=== PATIENT | female | born 1945 | race Caucasian/White ===

== ENCOUNTER 2017-05-06 15:31 | Emergency (ER) | payer MEDICARE, OTHER ==
[~2017-05-06] VITALS: Ht 160 cm; Wt 54.4 kg
[~2017-05-06 15:31] MED LIST: ESCITALOPRAM OX10 MG PO; FLAGYL500 MG PO; LEVAQUIN500 MG PO; LEVOTHYROXINE75 MCG PO; NAPROXEN500 MG PO; ULTRAM50 MG PO; VALIUM2 MG PO
[2017-05-06] MEDS ORDERED: FLUOROMETHOLONE5 ML TOP (15:50)
== END 2017-05-06 17:15 | disposition home or self-care (01) ==
LOC: ED 15:31
PROC: 2W3MX1Z Immobilization of Left Lower Extremity using Splint (ICD-10-PCS; principal; 2017-05-06)
DX: S66.912A Strain of unspecified muscle, fascia and tendon at wrist and hand level, left hand, initial encounter (principal); M19.032 Primary osteoarthritis, left wrist; Z90.49 Acquired absence of other specified parts of digestive tract; Z90.710 Acquired absence of both cervix and uterus; Z88.5 Allergy status to narcotic agent; Z88.8 Allergy status to other drugs, medicaments and biological substances; Z79.899 Other long term (current) drug therapy; W01.0XXA Fall on same level from slipping, tripping and stumbling without subsequent striking against object, initial encounter
CPT/HCPCS: 29125; 73110; 73130; 99283

== ENCOUNTER 2018-01-12 01:38 | Emergency (ER) | payer MEDICARE, OTHER ==
[~2018-01-12] VITALS: Ht 160 cm; Wt 54.4 kg
--- OUTSIDE RECORDS SUMMARY | ~2018-01-12 | XMS | Clinical Summary ---
Demographics + + + | Address | [address] | | | [place] [address] | + + + | Home Phone | | + + + | Preferred Language | Unknown | + + + | Marital Status | | + + + | Gnosticism Affiliation | 1013 | + + + | Race | Unknown | + + + | Ethnic Group | Unknown | + + + Author + + + | Author | [facility] | | | and [place] | + + + | Organization | [facility] | | | and [...] [place], [place] | | | | | [address] | | + + + + + | Kiara Villagran | ECON | [address] | | | | | [place], [place] | | | | | [address] | | + + + + + Care Team Providers + +------+ + | Care Trumpet Player Name | Role | Phone | + +------+ + | Woody Christiansen DO | PP | Unavailable | + +------+ + Allergies + + [...] + + + Current Medications + + + +---------+------+------+-------+ | Prescription | Sig. | Disp. | Refills | Star | End | Statu | | | | | | t | Date | s | | | | | | Date | | | + + + +---------+------+------+-------+ | Multiple | 1 per day | | | 11/ | | Activ | | Minerals-Vitamins | | | | 5/20 | | e | | (CITRACAL PLUS) TABS | | | | 11 | | | + + + +---------+------+------+-------+ | ibuprofen (ADVIL, | Take 400 mg by mouth | | | 05/ | | Activ | | MOTRIN) 400 mg | as needed. | | | 02/10 | | e | | tablet | | | | 12 | | | + + + +---------+------+------+-------+ | estrogens, | Apply vaginally 3 | 42.5 g | 2 | 05/2 | | Activ | | conjugated, | times per week | | | 020 | | e | | (PREMARIN) vaginal | | | | 13 | | | | creamIndications: | | | | | | | | Atrophic vaginitis | | | | | | | + + + +---------+------+------+-------+ | ondansetron | Take 1 tablet by | 20 | 0 | 01/1 | | Activ | | (ZOFRAN ODT) 4 mg | mouth every 8 hours | tablet | | 6/20 | | e | | disintegrating | as needed. | | | 14 | | | | tabletIndications: | | | | | | | | Nausea | | | | | | | + + + +---------+------+------+-------+ | levothyroxine | Take 88 mcg by mouth | | | | | Activ | | (SYNTHROID, | every morning | | | | | e | | LEVOTHROID) 88 mcg | (before breakfast). | | | | | | | tablet | | | | | | | + + + +---------+------+------+-------+ Active Problems + + + | Problem | Noted Date | + + + | Diverticulitis | [...] bleeding. Haustrations increased. Repeat in | | 7500-7981. Dexa: | | | |Dexa: | + [...] Hypothyroidism | 09/11/2005 | + + + Immunizations + + + + | Name [...] + +------+ + | Alcohol abuse | | | Thyroid | + + +------+ + | Depression | | | | + + +------+ + | Emphysema | | | | + + +------+ + | Lung cancer | | | | + + +------+ + | Tobacco Use | | | | + + +------+ + + +------+--------+ + | Relation | Name | Status | Comments | + +------+--------+ + | Daughter | | | | + +------+--------+ + | Daughter | | | | + +------+--------+ + | Father | | | | + +------+--------+ + | Maternal Grandfather | | | | + +------+--------+ + | Maternal Grandmother | | | | + +------+--------+ + | Mother | | | | + +------+--------+ + | Paternal Grandfather | | | | + +------+--------+ + | Paternal Grandmother | | | | + +------+--------+ + Social History + +-------+ +--------+------+ | [...] + + + | Blood Pressure | 96/54 | 12/02/20131318 PDT | + + + + | Pulse | 54 | 12/02/20131318 PDT | + + + + | Temperature | 37 C (98.6 F) | 10/09/2013909 PST | + + + + | Respiratory Rate | 16 | 12/02/20131318 PDT | + + + + | Oxygen Saturation | 98% | 10/09/2013909 PST | + + + + | Inhaled Oxygen | - | - | | Concentration | | | + + + + | Weight | 56.2 kg (124 lb) | 12/02/20131318 PDT | + + + + | Height | 160 cm (5' 3") | 12/02/20131318 PDT | + + + + | Body Mass Index | 21.97 | 12/02/20131318 PDT | + + + + Plan of Treatment + + + + + | Health [...] Influenza | | 05/30/2012 | | | (Season Ended) | 8 | | | + + + + + | COLON CANCER | | 06/19/2011 | | | SCREENING | 1 | | | | (COLONOSCOPY EVERY | | | | | 10 YEARS 50-75) | | | | + + + + + Results Not on filefrom Last 3 Months Insurance + +--------+ +--------+ +---------+ | Payer | Benefi | Subscriber | Type | Phone | Address | | | t Plan | ID | | | | | | / | | | | | | | Group | | | | | + +--------+ +--------+ +---------+ | MEDICARE | MEDICA | xxxxxxxxxx | Medica | [phone]- | | | | RE | | re | [id number] | | | | PART A | | | | | | | AND B | | | | | + +--------+ +--------+ +---------+ | HEALTHNET | HEALTH | xxxxxxxxx | Indemn | [phone] | | | | NET | | ity | [phone] | | | | MDCR | | [...] | Self | [birth year] | Home: | [facility] [address] | | | al/Fam | | 1946 | [phone] | [place] [address] | | | kayla | | | [phone] | | + +--------+ +--------+ + +
--- OUTSIDE RECORDS SUMMARY | ~2018-01-12 | XMS | Clinical Summary ---
Demographics + + + | Address | [address] | | | [place] [address] | + + + | Home Phone | | + + + | Preferred Language | Unknown | + + + | Marital Status | | + + + | Yarsanism Affiliation | 1013 | + + + | Race | Unknown | + + + | Ethnic Group | Unknown | + + + Author + + + | Author | [facility] | | | and [place] | + + + | Organization | [facility] | | | and [...] [place], [place] | | | | | [address] | | + + + + + | Kiara Villagran | ECON | [address] | | | | | [place], [place] | | | | | [address] | | + + + + + Care Team Providers + +------+ + | Care Advertising Copywriter Name | Role | Phone | + [...] bleeding. Haustrations increased. Repeat in | | 3509-3427. Dexa: | | | |Dexa: | + [...] | HEALTH | xxxxxxxxx | Indemn | [phone] | | | | NET | | ity | [phone] | | | | MDCR | | [...] | Self | [birth year] | Home: | [facility] [address] | | | al/Fam | | 1946 | [phone] | [place] [address] | | | kayla | | | [address] | | + +--------+ +--------+ + +
[~2018-01-12 01:38] MED LIST changes: +FLUOROMETHOLONE5 ML TOP
[2018-01-12] MEDS ORDERED: NORCO 5-325 TA1 EACH PO (03:07)
[2018-01-12] MEDS ORDERED: ONDANSETRON ODT8 MG PO (03:07)
--- NOTE | 2018-01-12 13:49 | EKG ---
[facility] [address] [place] [address] Signed Sinus rhythm Second Degree, Type 2 Heart Block Left axis deviation Septal infarct , age undetermined Lateral infarct , age undetermined Abnormal ECG When compared with ECG of 07-JUL-2016 12:55, Current undetermined rhythm precludes rhythm comparison, needs review Septal infarct is now present Lateral infarct is now present Nonspecific T wave abnormality no longer evident in Anterior leads Confirmed by CLINTON MALDONADO MD ([id number]) on 01/12/2018 1:49:31 PM Electronically Signed By: CLINTON MALDONADO MD 01/12/18 1349 PATIENT NAME: JAVIER PÉREZ Electrocardiogram DATE OF : 47 PHYSICIAN: CLINTON MALDONADO MD REPORT #: [id number] REPORT IS CONFIDENTIAL AND NOT TO BE RELEASED WITHOUT AUTHORIZATION
== END 2018-01-12 03:21 | disposition home or self-care (01) ==
LOC: ED 01:38
DX: R51 Headache (principal); R00.1 Bradycardia, unspecified; Z88.5 Allergy status to narcotic agent; Z88.8 Allergy status to other drugs, medicaments and biological substances; Z79.899 Other long term (current) drug therapy
CPT/HCPCS: 70450; 80053; 84484; 85025; 93005; 93010; 96374; 96375; 99284; J1885; J2405; J3010

== ENCOUNTER 2018-06-26 04:19 | Emergency (ER) | payer MEDICARE, OTHER ==
[~2018-06-26] VITALS: Ht 160 cm; Wt 54.4 kg
--- OUTSIDE RECORDS SUMMARY | ~2018-06-26 | XMS | Encounter Summary ---
Demographics + + + | Address | [address] | | | [place] [address] | + + + | Home Phone | | + + + | Preferred Language | Unknown | + + + | Marital Status | | + + + | Rastafarian Affiliation | 1013 | + + + | Race | Unknown | + + + | Ethnic Group | Unknown | + + + Author + + + | Author | [facility] | | | and [place] | + + + | Organization | [facility] | | | and [place] | + + + | Address | Unknown | + + + | Phone | Unavailable | + + + Support + + + + + | Name | Relationship | Address | Phone | + + + + + | Irwin Pastrana | CELESTINO | [address] | | | | | [place], [place] | | | | | [address] | | + + + + + | Kiara Villagran | ECON | [address] | | | | | [place], [place] | | | | | [address] | | + + + + + Care Team Providers + +------+ + | Care Cad Developer Name | Role | Phone | + +------+ + | Woody Christiansen DO | PCP | | + +------+ + Reason for Visit Diagnostic/Screening (Routine) +--------+--------+ + + + + | Status | Reason | Specialty | Diagnoses / | Referred By | Referred To | | | | | Procedures | Contact | Contact | +--------+--------+ + + + + | Closed | | Radiology | Diagnoses | Iliana, | Lori Nuclear | | | | | Bradycardia | MD Reji | Medicine | | | | | Abnormal | [address] | [address] | | | | | EKG | [address] | [place], | | | | | Procedures | [place], | [place] | | | | | [place] Nuclear | [place] [address] | [address] | | | | | Stress Test | Phone: | Phone: | | | | | (Vasodilator | [phone] | [phone] | | | | | ) [place] | Fax: | Fax: | | | | | Nuclear | [phone] | [phone] | | | | | Stress Test | | | | | | | (Exercise) | | | +--------+--------+ + + + + Encounter Details +--------+ + + + + | Date | Type | Department | Care Team | Description | +--------+ + + + + | 04/19/ | Hospital | [facility] | Reji Barrientos, | Bradycardia; | | 2018 | Encounter | MED CTR NUCLEAR | MD [address] | Abnormal EKG | | | | MEDICINE [address] | [address] [place], | | | | | [address] [place], | [place] [address] | | | | | [place] [address] | [phone] | | | | | [phone] | | | +--------+ + + + + Social History + +-------+ +--------+------+ | Tobacco Use | Types | Packs/Day | Years | Date | | | | | Used | | + +-------+ +--------+------+ | Never Smoker | | | | | + +-------+ +--------+------+ + +---+---+---+ | Smokeless Tobacco: | | | | | Never Used | | | | + +---+---+---+ + + +---------+ + | Alcohol Use | Drinks/We | oz/Week | Comments | | | ek | | | + + +---------+ + | No | | | | + + +---------+ + + + + | Sex Assigned at | Date Recorded | | | | + + + | Not on file | | + + + as of this encounter Medications at Time of Discharge + + +-------+---------+ + + | Medication | Sig. | Disp. | Refills | Start | End Date | | | | | | Date | | + + +-------+---------+ + + | cyanocobalamin | Take 500 mcg by | | | | | | (VITAMIN B-12) 500 | mouth Daily. | | | | | | mcg tablet | | | | | | + + +-------+---------+ + + | ibuprofen (ADVIL, | Take 400 mg by mouth | | | 02/06/20 | | | MOTRIN) 400 mg | as needed. | | | 12 | | | tablet | | | | | | + + +-------+---------+ + + | levothyroxine | Take 88 mcg by mouth | | | | | | (SYNTHROID, | every morning | | | | | | LEVOTHROID) 88 mcg | (before breakfast). | | | | | | tablet | | | | | | + + +-------+---------+ + + as of this encounter Plan of Treatment +--------+---------+ + + + | Date | Type | Specialty | Care Team | Description | +--------+---------+ + + + | 06/27/ | Office | Cardiology | Brendon, | | | 2017 | Visit | | [address] | | | | | | [place], | | | | | | [place] [address] | | | | | | [phone] | | | | | | | | +--------+---------+ + + + | 08/23/ | Office | Cardiology | Reji Barrientos, | | | 2017 | Visit | | [address] | | | | | | [place], | | | | | | [place] [address] | | | | | | [phone] | | | | | | | | +--------+---------+ + + + as of this encounter Procedures + +--------+ + + + | Procedure Name | Priori | Date/Time | Associated Diagnosis | Comments | | | ty | | | | + +--------+ + + + | NM NUCLEAR STRESS | Routin | 04/19/2018 | Bradycardia | Results for this | | TEST (PHARMACOLOGIC | e | 1047 PDT | Abnormal EKG | procedure are in the | | - VASODILATOR) | | | | results section. | + +--------+ + + + in this encounter Results NM Nuclear Stress Test (Vasodilator) (04/19/2018 1047) + + + | Impressions | Performed At | + + + | 1. Regadenoson EKG is negative. 2. Normal Regadenoson | [facility] | | Sestamibi myocardial perfusion study with a normal left ventricular | | | size and wall thickness. Preserved left ventricular systolic | | | function. LVEF by gated SPECT 71 b%. Signed by: Reji | | | MD Iliana [facility] 04/19/2018, 10:48 | | + + + + + ---+ | Narrative | Performed A t | + + ---+ | | [facility] | | NUCLEAR MEDICINE STRESS TEST REPORT Patient Name: Yudith Ponce | | | Denilson Study Date: 04/19/2018 Primary Care Provider: Woody | | | DO Kuldip : 1945 Age: 72 y.o. | | | Gender: female CLINICAL HISTORY/DIAGNOSIS: Chest pain | | | [facility] SESTAMIBI STRESS TESTIndication: chest pain Procedure: In | | | the supine position, .4 mg of Regadenoson was infused intravenously | | | over 10 seconds. Blood pressure and EKG were monitored every 1 | | | minute. 5 mL of normal saline was utilized to flush the IV | | | line. Twenty seconds later, 10.7 mCi sestamibi intravenous | | | injection. SPECT myocardial perfusion imaging was acquired with | | | wall motion analysis. Rest imaging was performed using 35.5 mCi | | | Sestamibi intravenous injection. Repeated SPECT myocardial | | | perfusion imaging was acquired with wall motion analysis. | | | Hemodynamics: Heart rate baseline 33 beats per minute, peak 40 | | | beats per minute. Blood pressure baseline 130/65 mmHg, peak 99/41 | | | mmHg. EKG baseline underlying profound sinus | | | bradycardia. Peak unchanged. Side Effects: None. | | | Arrhythmia: None. Reg[facility] Sestamibi Myocardial Perfusion | | | Imaging Result: The Regaden[facility] Sestamibi tomographic images, | | | reviewed without the attenuation compensation resolution, revealed a | | | normal myocardial perfusion pattern as seen in short axis, vertical | | | long axis, and horizontal long axis projections. The left ventricular | | | cavity is normal. The rest imaging is also normal. Gated | | | SPECT reveals a normal left ventricular wall thickness and | | | motion. Preserved left ventricular systolic function. LVEF by gated | | | SPECT is 71 %. | | |Heart rate baseline 33 beats per minute, peak 40 beats per minute. Blood | | |pressure baseline 130/65 mmHg, peak 99/41 mmHg. EKG baseline underlying | | |profound sinus bradycardia. Peak unchanged. | | | | | |Side Effects: None. | | | | | |Arrhythmia: None. | | | | | |Reg[facility] Sestamibi Myocardial Perfusion Imaging Result: | | | The Reg[facility] Sestamibi tomographic images, reviewed without the | | |attenuation compensation resolution, revealed a normal myocardial | | |perfusion pattern as seen in short axis, vertical long axis, and | | |horizontal long axis projections. The left ventricular cavity is normal. | | |The rest imaging is also normal. | | | | | | Gated SPECT reveals a normal left ventricular wall thickness and motion. | | |Preserved left ventricular systolic function. LVEF by gated SPECT is 71 %. | | | | | | | | + + ---+ + +---------+ + + | Performing | Address | City/State/Zipcode | Phone Number | | Organization | | | | + +---------+ + + | [facility] | | | | + +---------+ + + in this encounter Visit Diagnoses + + | Diagnosis | + + | Bradycardia | + + | Other specified cardiac dysrhythmias | + + | Abnormal EKG | + + | Nonspecific abnormal electrocardiogram (ECG) (EKG) | + + Administered Medications + +--------+ + +------+------+ | Medication Order | MAR | Action | Dose | Rate | Site | | | Action | Date | | | | + +--------+ + +------+------+ | technetium TC-99M sestamibi | Given | | 30 | | | | (CARDIOLITE) injection 30 | | 8 10:35 | millicur | | | | millicurie 30 millicurie, | | PDT | ies | | | | Intravenous, ONCE PRN, Other, | | | | | | | Starting 04/19/18 at 1035, For | | | | | | | 1 dose, Nuclear Medicine | | | | | | + +--------+ + +------+------+ +---+---+ | | | +---+---+ in this encounter"
--- OUTSIDE RECORDS SUMMARY | ~2018-06-26 | XMS | Encounter Summary ---
Demographics + + + | Address | [address] | | | [place] [address] | + + + | Home Phone | | + + + | Preferred Language | Unknown | + + + | Marital Status | | + + + | Evangelical Affiliation | 1013 | + + + | Race | Unknown | + + + | Ethnic Group | Unknown | + + + Author + + + | Author | [facility] | | | and [place] | + + + | Organization | [facility] | | | and [place] | [...] [place], [place] | | | | | [address] | | + + + + + | Kiara Villagran | ECON | [address] | | | | | [place], [place] | | | | | [address] | | + + + + + Care Team Providers + +------+ + | Care Engine Service Repairer Name | Role | Phone | + +------+ + | Woody Christiansen DO | PCP | | + +------+ + Reason for Visit +--------+ + | Reason | Comments | +--------+ + | Other | low heart rate | +--------+ + Encounter Details +--------+ + + + + | Date | Type | Department | Care Team | Description | +--------+ + + + + | 04/29/ | Telephone | [facility] | Reji Barrientos, | Other (low heart | | 2018 | | CARDIOLOGY [address] | [address] | rate) | | | | [place], | [place], | | | | | [place] [address] | [place] [address] | | | | | [phone] | [phone] | | | | | | | | +--------+ + + + [...] + + + as of this encounter Plan of Treatment +--------+---------+ + + + | Date | Type | Specialty | Care Team | Description | +--------+---------+ + + + | 06/27/ | Office | Cardiology | Brendon, | | | 2017 | Visit | | [address] | | | | | | [place], | | | | | | [place] [address] | | | | | | [phone] | | | | | | | | +--------+---------+ + + + | 08/23/ | Office | Cardiology | Reji Barrientos, | | | 2017 | Visit | | MD [address] | | | | | | [place], | | | | | | [place] [address] | | | | | | [phone] | | | | | | | | +--------+---------+ + + + as of this encounter Visit Diagnoses Not on filein this encounter"
--- OUTSIDE RECORDS SUMMARY | ~2018-06-26 | XMS | Encounter Summary ---
Demographics + + + | Address | [address] | | | [place] [address] | + + + | Home Phone | | + + + | Preferred Language | Unknown | + + + | Marital Status | | + + + | Methodist Affiliation | 1013 | + + + | Race | Unknown | + + + | Ethnic Group | Unknown | + + + Author + + + | Author | [facility] | | | and Fidelana | + + + | Organization | [facility] | | | and [...] [place], [place] | | | | | [address] | | + + + + + | Kiara Villagran | ECON | [address] | | | | | [place], [place] | | | | | [address] | | + + + + + Care Team Providers + +------+ + | Care Shellfish Weigher Name | Role | Phone | + [...] Abnormal | [address] | [address] | | | | | EKG | [address] | [place], | | | | | Procedures | [place], | [place] | | | | | [place] | [place] [address] | [address] | | | | | Stress Test | Phone: | Phone: | | | | | (Vasodilator | [phone] | [phone] | | | | | ) [place] | Fax: | Fax: | | | | | Nuclear | [phone] | [phone] | | | | | Stress Test | | | | | | | (Exercise) | | | +--------+--------+ + + + + Encounter Details +--------+ + + + + | Date | Type | Department | Care Team | Description | +--------+ + + + + | 04/19/ | Hospital | [facility] | Reji Barrientos, | Bradycardia; | | 2018 | Encounter | MED CTR NUCLEAR | MD [address] | Abnormal EKG; | | | | MEDICINE [address] [place], | Hyperlipidemia, | | | | [address] [place], | [place] [address] | unspecified | | | | [place] [address] | [phone] | hyperlipidemia type | | | | [phone] | | | | | | | Chief Of Pediatric UrologyLori | | +--------+ + + + + [...] | | | | | | [place] [address] | | | | | | [phone] | | | | | | | | +--------+---------+ + + + | 08/23/ | Office | Cardiology | Reji Barrientos, | | | 2017 | Visit | | [address] | | | | | | [place], | | | | | | [place] [address] | | | | | | [phone] | | | | | | | [...] section. | + +--------+ + + + | LIPID PANEL | Routin | 04/19/2018 | Bradycardia | Results for this | | | e | 0920 PDT | Abnormal EKG | procedure are in the | | | | | Hyperlipidemia, | results section. | | | | | unspecified | | | | | | hyperlipidemia type | | + +--------+ + + + | CBC WITH | Routin | 04/19/2018 | Bradycardia | Results for this | | DIFFERENTIAL | e | 0920 PDT | Abnormal EKG | procedure are in the | | | | | | results section. | + +--------+ + + + | TSH | Routin | 04/19/2018 | Bradycardia | Results for this | | | e | 0920 PDT | Abnormal EKG | procedure are in the | | | | | | results section. | + +--------+ + + + | COMPREHENSIVE | Routin | 04/19/2018 | Bradycardia | Results for this | | METABOLIC PANEL | e | 0920 PDT | Abnormal EKG | procedure are in the | | | | | | results section. | + +--------+ + + + in this encounter Results Lipid Panel (04/19/2018919) + + + + + | Component | Value | Ref Range | Performed At | + + + + + | Triglycerides | 102 | 35 - 160 mg/dL | [facility] | | | | | [facility] | | | | [facility] - | | | | | LABORATORY | + + + + + | Cholesterol | 172 | 150 - 200 mg/dL | [facility] | | | | | [facility] | | | | | [facility] - | | | | | LABORATORY | + + + + + | HDL | 52Comment: New HDL | 28 - 83 mg/dL | [facility] | | | Reference Range as of | | [facility] | | | June 03, 2015 | | CENTER - | | | Values may be 10-20% | | LABORATORY | | | lower with new, | | | | | standardized method. | | | + + + + + | Chol/HDL Ratio | 3.3 | | [facility] | | | | | [facility] | | | | | [facility] - | | | | | LABORATORY | + + + + + | LDL, Calculated | 100 | <=130 mg/dL | [facility] | | | | | [facility] | | | | | [facility] - | | | | | LABORATORY | + + + + + + + | Specimen | + + | Blood | + + + + + + + | Performing | Address | City/State/Zipcode | Phone Number | | Organization | | | | + + + + + | [facility] | [address] | [place], [place] | [phone] | | [facility] | | [address] | | | - LABORATORY | | | | + + + + + | [facility] | [address] | [place] | | | [facility] | | [address] | | | - LABORATORY | | | | + + + + + TSH (04/19/2018919) + + + + + | Component | Value | Ref Range | Performed At | + + + + + | TSH | 0.09 (L)Comment: This is | 0.45 - 5.33 uIU/mL | [facility] | | | a third generation TSH | | [facility] | | | test. | | CENTER - | | | | | LABORATORY | + + + + + + + | Specimen | + + | Blood | + + + + + + + | Performing | Address | City/State/Zipcode | Phone Number | | Organization | | | | + + + + + | [facility] | [address] | [place], [place] | [phone] | | [facility] | | [address] | | | - LABORATORY | | | | + + + + + | [facility] | [address] | [place], [place] | | | [facility] | | [address] | | | - LABORATORY | | | | + + + + + Comprehensive Metabolic Panel (04/19/2018919) + + + + + | Component | Value | Ref Range | Performed At | + + + + + | NA | 140 | 136 - 149 mmol/L | [facility] | | | | | [facility] | | | | | [facility] - | | | | | LABORATORY | + + + + + | K | 4.0 | 3.5 - 5.1 mmol/L | [facility] | | | | | [facility] | | | | | [facility] - | | | | | LABORATORY | + + + + + | CL | 109 | 98 - 109 mmol/L | [facility] | | | | | [facility] | | | | | [facility] - | | | | | LABORATORY | + + + + + | CO2 | 24 | 24 - 31 mmol/L | [facility] | | | | | [facility] | | | | | [facility] - | | | | | LABORATORY | + + + + + | ANION GAP | 7 | 3 - 16 mmol/L | [facility] | | | | | [facility] | | | | | [facility] - | | | | | LABORATORY | + + + + + | GLUCOSE | 106 | 70 - 109 mg/dL | [facility] | | | | | [facility] | | | | | [facility] - | | | | | LABORATORY | + + + + + | BUN | 17 | 7 - 18 mg/dL | [facility] | | | | | [facility] | | | | | C[facility] - | | | | | LABORATORY | + + + + + | Creatinine, | 0.88 | 0.60 - 1.30 mg/dL | [facility] | | Serum/Plasma | | | [facility] | | | | | CENTER - | | | | | LABORATORY | + + + + + | eGFR if not | >60Comment: GLOMERULAR | >=60 mL/min/1.73m2 | [facility] | | [place] | FILTRATION | | [facility] | | | RATE,ESTIMATED mL/min | | CENTER - | | | /1.61d8Jogo than 60 | | LABORATORY | | | Chronic kidney | | | | | disease,if found over a | | | | | 3-month period.Less than | | | | | 15 Kidney | | | | | failureFor | | | | | Americans,multiply the | | | | | calculated GFR by 1.21. | | | | | | | | + + + + + | CALCIUM | 9.5 | 8.3 - 10.5 mg/dL | [facility] | | | | | [facility] | | | | | CENTER - | | | | | LABORATORY | + + + + + | ALBUMIN | 3.9 | 3.2 - 5.0 g/dL | [facility] | | | | | [facility] | | | | | CENTER - | | | | | LABORATORY | + + + + + | Bilirubin Total | 2.3 (H) | 0.1 - 1.5 mg/dL | [facility] | | | | | [facility] | | | | | CENTER - | | | | | LABORATORY | + + + + + | Total protein | 6.7 | 6.0 - 7.8 g/dL | [facility] | | | | | [facility] | | | | | C[facility] - | | | | | LABORATORY | + + + + + | AST | 19 | 10 - 42 U/L | [facility] | | | | | [facility] | | | | | C[facility] - | | | | | LABORATORY | + + + + + | ALT | 19 | 6 - 45 U/L | [facility] | | | | | [facility] | | | | | [facility] - | | | | | LABORATORY | + + + + + | ALK PHOS | 67 | 40 - 110 U/L | [facility] | | | | | [facility] | | | | | [facility] - | | | | | LABORATORY | + + + + + | GLOBULIN | 2.8 | 2.1 - 3.8 g/dL | [facility] | | | | | [facility] | | | | | C[facility] - | | | | | LABORATORY | + + + + + | Albumin/Globulin | 1.4 | 0.8 - 2.0 | [facility] | | ratio | | | [facility] | | | | | CENTER - | | | | | LABORATORY | + + + + + | BUN/CREA | 19.3 | | [facility] | | | | | [facility] | | | | | [facility] - | | | | | LABORATORY | + + + + + + + | Specimen | + + | Blood | + + + + + + + | Performing | Address | City/State/Zipcode | Phone Number | | Organization | | | | + + + + + | [facility] | [address] | [place] | [phone] | | [facility] | | [address] | | | - LABORATORY | | | | + + + + + | [facility] | [address] | [place] | | | [facility] | | [address] | | | - LABORATORY | | | | + + + + + CBC with Differential (04/19/2018919) + +---------+ + + | Component | Value | Ref Range | Performed At | + +---------+ + + | WBC | 6.5 | 4.0 - 11.0 K/uL | [facility] | | | | | [facility] | | | | | CENTER - | | | | | LABORATORY | + +---------+ + + | RBC | 5.14 | 3.70 - 5.20 M/uL | [facility] | | | | | [facility] | | | | | [facility] - | | | | | LABORATORY | + +---------+ + + | Hgb | 15.7 | 11.5 - 16.0 g/dL | [facility] | | | | | [facility] | | | | | [facility] - | | | | | LABORATORY | + +---------+ + + | Hct | 45.7 | 34.0 - 47.0 % | [facility] | | | | | [facility] | | | | | [facility] - | | | | | LABORATORY | + +---------+ + + | MCV | 88.8 | 83.0 - 101.0 fL | [facility] | | | | | [facility] | | | | | [facility] - | | | | | LABORATORY | + +---------+ + + | MCH | 30.5 | 28.0 - 35.0 pg | [facility] | | | | | [facility] | | | | | [facility] - | | | | | LABORATORY | + +---------+ + + | MCHC | 34.4 | 32.0 - 36.0 g/dL | [facility] | | | | | [facility] | | | | | [facility] - | | | | | LABORATORY | + +---------+ + + | RDW-CV | 14.2 | <15.0 % | [facility] | | | | | [facility] | | | | | [facility] - | | | | | LABORATORY | + +---------+ + + | Platelet Count | 255 | 140 - 440 K/uL | [facility] | | | | | [facility] | | | | | [facility] - | | | | | LABORATORY | + +---------+ + + | MPV | 8.4 | fL | [facility] | | | | | [facility] | | | | | [facility] - | | | | | LABORATORY | + +---------+ + + | % Neutrophils | 55.2 | 45.0 - 82.0 % | [facility] | | | | | [facility] | | | | | [facility] - | | | | | LABORATORY | + +---------+ + + | % Lymphocytes | 36.1 | 20.0 - 45.0 % | [facility] | | | | | [facility] | | | | | [facility] - | | | | | LABORATORY | + +---------+ + + | % Monocytes | 6.6 | 4.0 - 12.0 % | [facility] | | | | | [facility] | | | | | [facility] - | | | | | LABORATORY | + +---------+ + + | % Eosinophils | 0.9 | 0.0 - 5.0 % | [facility] | | | | | [facility] | | | | | [facility] - | | | | | LABORATORY | + +---------+ + + | % Basophils | 1.2 (H) | 0.0 - 1.0 % | [facility] | | | | | [facility] | | | | | [facility] - | | | | | LABORATORY | + +---------+ + + | Absolute Neutrophils | 3.60 | 1.80 - 8.50 K/uL | [facility] | | | | | [facility] | | | | | [facility] - | | | | | LABORATORY | + +---------+ + + | Absolute Lymphocytes | 2.40 | 0.60 - 3.20 K/uL | [facility] | | | | | [facility] | | | | | [facility] - | | | | | LABORATORY | + +---------+ + + | Absolute Monocytes | 0.40 | 0.00 - 1.00 K/uL | [facility] | | | | [facility] | | | | | [facility] - | | | | | LABORATORY | + +---------+ + + | Absolute Eosinophils | 0.10 | 0.00 - 0.40 K/uL | [facility] | | | | | [facility] | | | | | [facility] - | | | | | LABORATORY | + +---------+ + + | Absolute Basophils | 0.10 | 0.00 - 0.10 K/uL | [facility] | | | | | [facility] | | | | | CENTER - | | | | | LABORATORY | + +---------+ + + + + | Specimen | + + | Blood | + + + + + + + | Performing | Address | City/State/Zipcode | Phone Number | | Organization | | | | + + + + + | [facility] | [address] | [place] | [phone] | | [facility] | | [address] | | | - LABORATORY | | | | + + + + + | [facility] | [address] | [place] | | | [facility] | | [address] | | | - LABORATORY | | | | + + + + + in this encounter Visit Diagnoses + + | Diagnosis | + + | Bradycardia | + + | Other specified cardiac dysrhythmias | + + | Abnormal EKG | + + | Nonspecific abnormal electrocardiogram (ECG) (EKG) | + + | Hyperlipidemia, unspecified hyperlipidemia type | + + Administered Medications + +--------+ + +------+------+ | Medication Order | MAR | Action | Dose | Rate | Site | | | Action | Date | | | | + +--------+ + +------+------+ | technetium TC-99M sestamibi | Given | | 10.3 | | | | (CARDIOLITE) injection 10.3 | | 8 7:44 | millicur | | | | millicurie 10.3 millicurie, | | PDT | ies | | | | Intravenous, ONCE PRN, Other, | | | | | | | Starting 04/19/18 at 0744, For | | | | | | | 1 dose, Nuclear Medicine | | | | | | + +--------+ + +------+------+ +---+---+ | | | +---+---+ in this encounter"
--- OUTSIDE RECORDS SUMMARY | ~2018-06-26 | XMS | Encounter Summary ---
Demographics + + + | Address | [address] | | | [place] [address] | + + + | Home Phone | | + + + | Preferred Language | Unknown | + + + | Marital Status | | + + + | Scientologist Affiliation | 1013 | + + + | Race | Unknown | + + + | Ethnic Group | Unknown | + + + Author + + + | Author | [facility] | | | and [place]idel[place] | + + + | Organization | [facility] | | | and [place] [...] [place], [place] | | | | | [address] | | + + + + + | Kiara Villagran | ECON | [address] | | | | | [place], [place] | | | | | [address] | | + + + + + Care Team Providers + +------+ + | Care Wheel Filler Name | Role | Phone | + +------+ + | Woody Christiansen DO | PCP | | + +------+ + Reason for Visit +--------+ + | Reason | Comments | +--------+ + | Other | more questions | +--------+ + Encounter Details +--------+ + + + + | Date | Type | Department | Care Team | Description | +--------+ + + + + | 05/20/ | Telephone | [facility] | Reji Barrientos, | Other (more | | 2017 | | [address] | questions) | | | | [address], | [place], | | | | | [place] [address] | [place] [address] | | | | | [phone] | [phone] | | | | | | | [...] | | | | | | [place] [address] | | | | | | [phone] | | | | | | | | +--------+---------+ + + + | 08/23/ | Office | Cardiology | Reji Barrientos, | | | 2017 | Visit | | MD [address] | | | | | | [place], | | | | | | [place] [address] | | | | | | [phone] | | | | | | | | +--------+---------+ + + + as of this encounter Visit Diagnoses Not on filein this encounter"
--- OUTSIDE RECORDS SUMMARY | ~2018-06-26 | XMS | Encounter Summary ---
Demographics + + + | Address | [address] | | | [place] [address] | + + + | Home Phone | | + + + | Preferred Language | Unknown | + + + | Marital Status | | + + + | Muslim Affiliation | 1013 | + + + | Race | Unknown | + + + | Ethnic Group | Unknown | + + + Author + + + | Author | [facility] | | | and [place] | + + + | Organization | [facility] | | | and [place] [...] [place], [place] | | | | | [address] | | + + + + + | Kiara Villagran | ECON | [address] | | | | | [place], [place] | | | | | [address] | | + + + + + Care Team Providers + +------+ + | Care Count Room Clerk Name | Role | Phone | + +------+ + | Woody Christiansen DO | PCP | | + +------+ + Encounter Details +--------+ + + + + | Date | Type | Department | Care Team | Description | +--------+ + + + + | 04/10/ | Hospital | [facility] | Amilcaralexsilvio Keziaamilcar, | Bradycardia; | | 2018 | Encounter | MED CTR NUCLEAR | MD [address] | Abnormal EKG | | | | MEDICINE [address] [place], | | | | | [place], | [place] [address] | | | | | [place] [address] | [phone] | | | | | [phone] | | | +--------+ + + + [...] | | | | | | [place], | | | | | | [place] [address] | | | | | | [phone] | | | | | | | | +--------+---------+ + + + | 08/23/ | Office | Cardiology | Amilcarkeizaespinoza Keziaamilcar, | | | 2017 | Visit | | [address] | | | | | | [place], | | | | | | [place] [address] | | | | | | [phone] | | | | | | | | +--------+---------+ + + + as of this encounter Procedures + +--------+ + + + | Procedure Name | Priori | Date/Time | Associated Diagnosis | Comments | | | ty | | | | + +--------+ + + + | HOLTER MONITOR - 48 | Routin | 04/12/2018 | Bradycardia | Results for this | | HOUR | e | 1528 PDT | Abnormal EKG | procedure are in the | | | | | | results section. | + +--------+ + + + in this encounter Results Holter monitor - 48 hour (04/12/2018 1528) + + + | Narrative | Performed At | + + + | Reji Barrientos MD 04/12/2018 15:37 PATIENT | [facility] | | NAME: Yudith Oreilly : 1945: AGE: 72 | | | y.o. PRIMARY CARE: Woody | | | DO KAREN Christiansen PROVIDER RELATIONS ADVOCATE: Reji Barrientos MD | | | 48-HOUR HOLTER MONITOR REPORT DATE: 04/10/2018 | | | IMPRESSION: 1. The predominant rhythm is sinus bradycardia with | | | the heart rate ranging between 32 and 81 beats per minute. The | | | average heart rate was 49 beats per minute during the 47:08 hour | | | recording. 2. Very rare premature ventricular contractions | | | including one couplet and one triplet. 3. Frequent to very | | | frequent premature atrial contractions including 233 couplets and | | | 358 SVE runs. The longest run was 8 beats (19:56-2) and the | | | maximum rate was 96 beats per minute (08:20-3). 4. 646 pauses, | | | the longest 3.51 seconds (03:15-2). An additional number (68) of | | | beats were categorized as non-conducting p-waves. 5. The patient | | | listed multiple symptoms of her heart pounding and | | | dizziness. These all correlated with bradycardia. Signed by: | | | Reji Barrientos MD [facility] 04/12/2018, 15:28 | | + + + + +---------+ + + | Performing | Address | City/State/Zipcode | Phone Number | | Organization | | | | + +---------+ + + | [facility] | | | | + +---------+ + + in this encounter Visit Diagnoses + + | Diagnosis | + + | Bradycardia | + + | Other specified cardiac dysrhythmias | + + | Abnormal EKG | + + | Nonspecific abnormal electrocardiogram (ECG) (EKG) | + +"
--- OUTSIDE RECORDS SUMMARY | ~2018-06-26 | XMS | Encounter Summary ---
Demographics + + + | Address | [address] | | | [place] [address] | + + + | Home Phone | | + + + | Preferred Language | Unknown | + + + | Marital Status | | + + + | Restorationist Affiliation | 1013 | + + + | Race | Unknown | + + + | Ethnic Group | Unknown | + + + Author + + + | Author | [facility] | | | and [place] | + + + | Organization | [facility] | | | and [place] [...] [place], [place] | | | | | [address] | | + + + + + | Kiara Villagran | ECON | [address] | | | | | [place], [place] | | | | | [address] | | + + + + + Care Team Providers + +------+ + | Care Plastic Shaper Name | Role | Phone | + [...] + + | 04/29/ | Telephone | [facility] | Reji Barrientos, | Other (low heart | | 2018 | | CARDIOLOGY [address] [place] | rate) | | | | [place], | [place], | | | | | [place] [address] | [place] [address] | | | | | [phone] | [phone] | | | | | | | [...] | | | | | | [place] [address] | | | | | | [phone] | | | | | | | | +--------+---------+ + + + | 08/23/ | Office | Cardiology | Reji Barrientos, | | | 2017 | Visit | | MD [address] | | | | | | [place], | | | | | | [place] [address] | | | | | | [phone] | | | | | | | | +--------+---------+ + + + as of this encounter Visit Diagnoses Not on filein this encounter"
--- OUTSIDE RECORDS SUMMARY | ~2018-06-26 | XMS | Encounter Summary ---
Demographics + + + | Address | [address] | | | [place] [address] | + + + | Home Phone | | + + + | Preferred Language | Unknown | + + + | Marital Status | | + + + | Muslim Affiliation | 1013 | + + + | Race | Unknown | + + + | Ethnic Group | Unknown | + + + Author + + + | Author | [facility] | | | and [place] | + + + | Organization | [facility] | | | and [place] | + + + | Address | Unknown | + + + | Phone | Unavailable | + + + Support + + + + + | Name | Relationship | Address | Phone | + + + + + | Irwin Pastrana | CELESTINO | [address] | | | | | [place], [place] | | | | | [address] | | + + + + + | Kiara Villagran | ECON | [address] | | | | | [place], [place] | | | | | [address] | | + + + + + Care Team Providers + +------+ + | Care Insurance Risk Surveyor Name | Role | Phone | + +------+ + | Woody Christiansen DO | PCP | | + +------+ + Reason for Visit + + + | Reason | Comments | + + + | Follow-up | | + + + | Bradycardia | | + + + Encounter Details +--------+---------+ + + + | Date | Type | Department | Care Team | Description | +--------+---------+ + + + | 05/20/ | Office | [facility] | Reji Barrientos, | Bradycardia (Primary | | 2018 | Visit | CARDIOLOGY [address] | MD [address] | Dx); Palpitations | | | | [place], | [place], | | | | | [place] [address] | [place] [address] | | | | | [phone] | [phone] | | | | | | | | +--------+---------+ + + + Social History + +-------+ [...] + + + as of this encounter Last Filed Vital Signs + + + + | Vital Sign | Reading | Time Taken | + + + + | Blood Pressure | 92/60 | 05/20/2018 1345 PDT | + + + + | Pulse | 52 | 05/20/2018 1345 PDT | + + + + | Temperature | - | - | + + + + | Respiratory Rate | 18 | 05/20/2018 1345 PDT | + + + + | Oxygen Saturation | - | - | + + + + | Inhaled Oxygen | - | - | | Concentration | | | + + + + | Weight | 55.8 kg (123 lb 0.3 | 05/20/2018 1345 PDT | | | oz) | | + + + + | Height | 160 cm (5' 3") | 05/20/2018 1345 PDT | + + + + | Body Mass Index | 21.79 | 05/20/2018 1345 PDT | + + + + in this encounter Progress Notes Reji Barrientos MD - 05/20/2018 1400 PDTFormatting of this note may be different from jared godwin. PATIENT NAME: Yudith Oreilly : 1945: AGE: 72 y.o. PRIMARY CARE: Woody Christiansen DO OUTPATIENT FOLLOW UP VISIT Date of Service: 05/20/2018 HISTORY OF PRESENT ILLNESS: Yudith Oreilly is a 72 y.o. female with a history of hypothyroidism. She is being seen today for bradycardia and palpitations. She was last seen 04/05/2018 at which time patient was scheduled for echocardiogram, 48 hour Holter monitor and exercise stress test. Since that time, patient reports one episode of di zziness. She also reports feeling fatigue and some palpitations. Patient is physically activ e walking. There is no chest pain or chest discomfort both at rest and on exertion. Patient denies breathlessness. There is no ankle or leg swelling. Patient can sleep on one pillow at night without difficulty breathing. MEDICAL, SURGICAL, AND PERSONAL HISTORY Past Medical, Surgical, Family, and Social History are reviewed in EPIC. CURRENT PROBLEMS Patient Active Problem List Diagnosis SARAI'S THYROIDITIS DIVERTICULOSIS OF COLON Hypothyroidism PALPITATIONS COLONIC POLYPS, HYPERPLASTIC, HX OF OSTEOPENIA HYPERLIPIDEMIA STRESS REACTION, ACUTE Atrophic vaginitis Dehydration Preventative health care Diverticulitis Bradycardia Forgetfulness Gait disturbance Alzheimer's dementia CURRENT MEDICATIONS Current Outpatient Prescriptions Medication Sig Dispense Refill cyanocobalamin (VITAMIN B-12) 500 mcg tablet Take 500 mcg by mouth Daily. ibuprofen (ADVIL, MOTRIN) 400 mg tablet Take 400 mg by mouth as needed. levothyroxine (SYNTHROID, LEVOTHROID) 88 mcg tablet Take 88 mcg by mouth every morning (before breakfast). No current facility-administered medications for this visit. ALLERGIES Allergies Allergen Reactions Levofloxacin Other (See Comments) Severe body aches Metronidazole Other (See Comments) Severe body aches Nitrofurantoin Macrocrystal Other (See Comments) Nausea, flushing, tingling of skin. Tramadol Nausea And Vomiting Atropine Codeine Sulfate Diphenoxylate Hcl Lomotil Meperidine Hcl Morphine Propoxyphene Hcl ROS Review of Systems Constitutional: Negative for malaise/fatigue. Respiratory: Positive for shortness of breath. Cardiovascular: Negative for chest pain, palpitations and leg swelling. Neurological: Positive for dizziness. Negative for weakness. Lightheaded = No OBJECTIVE: PHYSICAL EXAM BP 92/60 | Pulse 52 | Resp 18 | Ht 1.6 m (5' 3") | Wt 55.8 kg (123 lb 0.3 oz) | BMI 21 .79 kg/m Physical Exam Constitutional: She is oriented to person, place, and time. She appears well-developed and well-nourished. Female individual arrives with , no acute distress. Neck: Normal carotid pulses and no JVD present. Carotid bruit is not present. Cardiovascular: Normal rate, regular rhythm, S1 normal, S2 normal, normal heart sounds and intact distal pulses. PMI is not displaced. Exam reveals no gallop and no friction rub. No murmur heard. Pulses: Carotid pulses are 2+ on the right side, and 2+ on the left side. Posterior tibial pulses are 2+ on the right side, and 2+ on the left side. Pulmonary/Chest: Effort normal and breath sounds normal. No accessory muscle usage. No resp iratory distress. She has no wheezes. She has no rhonchi. She has no rales. Abdominal: Soft. Normal appearance and normal aorta. She exhibits no abdominal bruit. There is no hepatosplenomegaly. There is no tenderness. Musculoskeletal: She exhibits no edema. Neurological: She is alert and oriented to person, place, and time. Gait normal. Skin: Skin is warm and dry. No cyanosis. Nails show no clubbing. Psychiatric: She has a normal mood and affect. Her mood appears not anxious. She does not e xhibit a depressed mood. LAB RESULTS reviewed during visit today primarily from [facility]: LIPID Lab Results Component Value Date CHOL 172 04/19/2018 TRIG 102 04/19/2018 HDL 52 04/19/2018 LDL 100 04/19/2018 CHOLHDL 3.3 04/19/2018 CHEMISTRY Lab Results Component Value Date GLU 106 04/19/2018 NA 140 04/19/2018 K 4.0 04/19/2018 CL 109 04/19/2018 CO2 24 04/19/2018 CALCIUM 9.5 04/19/2018 ALKPHOS 67 04/19/2018 AST 19 04/19/2018 ASTEX 24 11/11/2013 ALT 19 04/19/2018 ALTEX 24 11/11/2013 BILITOT 2.3 (H) 04/19/2018 CREA 0.88 04/19/2018 BUN 17 04/19/2018 EGFR >60 10/09/2013 EGFREX >60 11/11/2013 CREEX 0.8 11/11/2013 HEMATOLOGY Lab Results Component Value Date WBC 6.5 04/19/2018 WBCEX 6.5 11/11/2013 HGB 15.7 04/19/2018 HGBEX 14.5 11/11/2013 HCT 45.7 04/19/2018 HCTEX 43.8 11/11/2013 PLT 255 04/19/2018 PLTEX 244 11/11/2013 Above data and testing is reviewed this visit; testing below is historical data unless othe rwise specified. ASSESSMENT: 1. Bradycardia/symptomatic/irreversible A. Patient was in her usual state of health until December 2017 she was seen at [facility] for head pain. At that time she had a heart beat that went down to 30 beats per mi nute and was diagnosed with bradycardia. She denied any dizziness and lightheadedness. B. 48-hour Holter monitor 04/10/2018 shows predominant rhythm is sinus bradycardia with the heart rate ranging between 32 and 81 beats per minute, average heart rate was 49 beats per minute during the 47:08 hour recording, very rare premature ventricular contractions includi ng one couplet and one triplet, frequent to very frequent premature atrial contractions incl uding 233 couplets and 358 SVE runs, longest run was 8 beats (19:56-2) and the maximum rate was 96 beats per minute (08:20-3), 646 pauses, the longest 3.51 seconds (03:15-2), an additi onal number (68) of beats were categorized as non-conducting p-waves, patient listed multipl e symptoms of her heart pounding and dizziness, these all correlated with bradycardia. C. Echocardiogram 04/12/2018 shows normal left ventricular size, wall thickness and motion, preserved left ventricular systolic function. LVEF is 55-60%, grade 1 left ventricular velazquez tolic dysfunction, mild aortic valve insufficiency, mild tricuspid valve regurgitation, norm al right-sided pressure, normal IVC with normal respiratory collapse, there is a small circu mferential pericardial effusion noted. D. Stress test 04/19/2018 shows regadenoson EKG is negative, normal regadenoson sestamibi m yocardial perfusion study with a normal left ventricular size and wall thickness, preserved left ventricular systolic function, LVEF by gated SPECT 71 %. E. Today, patient reports one episode of dizziness. She also reports feeling fatigue and some palpitations. Patient is physically active walking. There is no signs and symptoms of o vert congestive heart failure. She is in a class I of [place] Heart Association functional class. There is no fluid retention on physical examination. Options of dual-chamber permanent pacemaker implantation was discussed with the patient hubert hicks her . She feels that she is not ready at this time. 2. Palpitations A. She has occasional heart racing. 3. Abnormal ECG suggesting anteroseptal wall myocardial infarction, age indeterminate A. Patient denies any chest pain but continues to feel fatigue. 4. Hypothyroidism A. TSH is 0.09 from 04/19/2018. PLAN: 1. Patient is candidate for dual chamber pacemaker implantation. The risks and benefits of the procedure including alternative treatment were discussed with the patient in length. The patient decides to wait at this time. 2. She will continue with current medical regimen. 3. I recommend a therapeutic lifestyle change including walking 30 minutes a day and choos ing healthy choices of diet. 4. Follow-up in three months or sooner if he had more symptoms of bradycardia to pursue per manent pacemaker implantation. I, Rocio Terrazas, am acting as a scribe on behalf of, and in the presence of Reji doran MD. I have reviewed and edited this note. Rocio Terrazas, Crotch Breaker 05/20/2018 I, Reji Barrientos MD, personally performed the services described in this documentation, as scribed in my presence and it is both accurate and complete. Rocio Terrazas, Med Ass t 05/20/2018 13:50 Electronically signed by: Reji Barrientos MD [facility] 05/20/2018 Portions of this chart may have been created with yourdelivery voice recognition software. Occasi onal wrong-word or sound-alike substitutions may have occurred due to the inherent joshi itations of voice recognition software. Please read the chart carefully and recognize, using context, where these substitutions have occurred in this encounter Plan of Treatment +--------+---------+ + + + | Date | Type | Specialty | Care Team | Description | +--------+---------+ + + + | 06/27/ | Office | Cardiology | Brendon, | | | 2017 | Visit | | CHRISTINA Cordova [address] | | | | | | [place], | | | | | | [place] [address] | | | | | | [phone] | | | | | | | | +--------+---------+ + + + | 08/23/ | Office | Cardiology | Iliana Keziaethanrachel, | | | 2017 | Visit | | MD [address] | | | | | | [place], | | | | | | [place] [address] | | | | | | [phone] | | | | | | | | +--------+---------+ + + + as of this encounter Visit Diagnoses + + | Diagnosis | + + | Bradycardia - Primary | + + | Other specified cardiac dysrhythmias | + + | Palpitations | + +
--- OUTSIDE RECORDS SUMMARY | ~2018-06-26 | XMS | Encounter Summary ---
Demographics + + + | Address | [address] | | | [place] [address] | + + + | Home Phone | | + + + | Preferred Language | Unknown | + + + | Marital Status | | + + + | Congregation Affiliation | 1013 | + + + | Race | Unknown | + + + | Ethnic Group | Unknown | + + + Author + + + | Author | [facility] | | | and [place] | + + + | Organization | [facility] | | | and [place] | [...] [place], [place] | | | | | [address] | | + + + + + | Kiara Villagran | ECON | [address] | | | | | [place], [place] | | | | | [address] | | + + + + + Care Team Providers + +------+ + | Care Parimutuel Cashier Name | Role | Phone | + +------+ + | Woody Christiansen DO | PCP | | + +------+ + Reason for Visit + + + | Reason | Comments | + + + | Referral | | + + + Encounter Details +--------+ + + + + | Date | Type | Department | Care Team | Description | +--------+ + + + + | 04/04/ | Telephone | [facility] | Reji Barrientos, | Referral | | 2018 | | CARDIOLOGY [address] | MD [address] | | | | | [place], | [place], | | | | | [place] [address] | [place] [address] | | | | | [phone] | [phone] | | | | | | | [...] [place], | | | | | | [place] [address] | | | | | | [phone] | | | | | | | | +--------+---------+ + + + | 08/23/ | Office | Cardiology | Reji Barrientos, | | | 2017 | Visit | | MD Kev[address] Thomas | | | | | | [place], | | | | | | [place] [address] | | | | | | [phone] | | | | | | | | +--------+---------+ + + + as of this encounter Visit Diagnoses Not on filein this encounter"
--- OUTSIDE RECORDS SUMMARY | ~2018-06-26 | XMS | Encounter Summary ---
Demographics + + + | Address | [address] | | | [place] [address] | + + + | Home Phone | | + + + | Preferred Language | Unknown | + + + | Marital Status | | + + + | Church Affiliation | 1013 | + + + | Race | Unknown | + + + | Ethnic Group | Unknown | + + + Author + + + | Author | [facility] | | | and [place] | + + + | Organization | [facility] | | | and [place] [...] [place], [place] | | | | | [address] | | + + + + + | Kiara Villagran | ECON | [address] | | | | | [place], [place] | | | | | [address] | | + + + + + Care Team Providers + +------+ + | Care Dynamo Tender Name | Role | Phone | + +------+ + | Woody Christiansen DO | PCP | | + +------+ + Reason for Referral Diagnostic/Screening (Routine) +--------+--------+ + + + + [...] Abnormal | [address] | | | | | EKG | [address] | [place], | | | | | Procedures | [place], | [place] | | | | | [place] Nuclear | [place] [address] | [address] | | | | | Stress Test | Phone: | Phone: | | | | | (Vasodilator | [phone] | [phone] | | | | | ) [place] | Fax: | Fax: | | | | | Nuclear | [phone] | [phone] | | | | | Stress Test | | | | | | | (Exercise) | | | +--------+--------+ + + + + Encounter Details +--------+ + + + + | Date | Type | Department | Care Team | Description | +--------+ + + + + | 04/19/ | Ancillary | [facility] | Reji Barrientos, | Bradycardia; | | 2018 | Orders | CARDIOLOGY [address] | MD [address] | Abnormal EKG | | | | [place], | [place], | | | | | [place] [address] | [place] [address] | | | | | [phone] | [phone] | | | | | | | [...] | Cardiology | Brendon, | | | 2018 | Visit | | CHRISTINA Cordova [address] | | | | | | [place], | | | | | | [place] [address] | | | | | | [phone] | | | | | | | | +--------+---------+ + + + | 08/23/ | Office | Cardiology | Reji Barrientos, | | | 2017 | Visit | | [address] [place] | | | | | | [place], | | | | | | [place] [address] | | | | | | [phone] | | | | | | | | +--------+---------+ + + + as of this encounter Results DC Nuclear Stress Test (Vasodilator) (04/19/2018 1047) + [...] by: Reji | | | MD Il[facility] 04/19/2018, 10:48 | | + + + [...]
--- OUTSIDE RECORDS SUMMARY | ~2018-06-26 | XMS | Encounter Summary ---
Demographics + + + | Address | [address] | | | [place] [address] | + + + | Home Phone | | + + + | Preferred Language | Unknown | + + + | Marital Status | | + + + | Confucianist Affiliation | 1013 | + + + | Race | Unknown | + + + | Ethnic Group | Unknown | + + + Author + + + | Author | [facility] | | | and [place] | + + + | Organization | [facility] | | | and [place] | [...] [place], [place] | | | | | [address] | | + + + + + | Kiara Villagran | ECON | [address] | | | | | [place], [place] | | | | | [address] | | + + + + + Care Team Providers + +------+ + | Care Certified Medical Aide Name | Role | Phone | + [...] + + | 05/20/ | Office | [facility] | Reji Barrientos, | Bradycardia (Primary | | 2018 | Visit | CARDIOLOGY [address] | MD [address] | Dx); Palpitations | | | | [place], | [place], | | | | | [place] [address] | [place] [address] | | | | | [phone] | | | | | | | [...] RESULTS reviewed during visit today primarily from [facility]: LIPID Lab Results Component Value Date CHOL [...] until December 2017 she was seen at [facility] for head pain. At that time she [...] She is in a class I of [place] Heart Association functional class. There is no [...] reviewed and edited this note. Rocio Terrazas, Information Services Tech 05/20/2018 I, Reji Barrientos MD, personally performed the services described in this documentation, as scribed in my presence and it is both accurate and complete. Rocio Terrazas, Med Ass t 05/20/2018 13:50 Electronically signed by: Reji Barrientos MD [facility] 05/20/2018 Portions of this chart may have been created with Talkray voice recognition software. Occasi onal wrong-word or [...] [place], | | | | | | [place] [address] | | | | | | [phone] | | | | | | | | +--------+---------+ + + + | 08/23/ | Office | Cardiology | Iliana Keziaethanrachel, | | | 2017 | Visit | | MD [address] | | | | | | [place], | | | | | | [place] [address] | | | | | | [phone] | | | | | | | | +--------+---------+ + + + as of this encounter Visit Diagnoses + + | Diagnosis | + + | Bradycardia - Primary | + + | Other specified cardiac dysrhythmias | + + | Palpitations | + +
--- OUTSIDE RECORDS SUMMARY | ~2018-06-26 | XMS | Encounter Summary ---
Demographics + + + | Address | [address] | | | [place] [address] | + + + | Home Phone | | + + + | Preferred Language | Unknown | + + + | Marital Status | | + + + | Episcopalian Affiliation | 1013 | + + + | Race | Unknown | + + + | Ethnic Group | Unknown | + + + Author + + + | Author | [facility] | | | and [place] | + + + | Organization | [facility] | | | and [place] [...] [place], [place] | | | | | [address] | | + + + + + | Kiara Villagran | ECON | [address] | | | | | [place], [place] | | | | | [address] | | + + + + + Care Team Providers + +------+ + | Care Farm Tractor Operator Name | Role | Phone | + [...] + + | 05/20/ | Telephone | [facility] | Reji Barrientos, | Other (more | | 2017 | | RUB[place] [address] | [address] | questions) | | | | [place], | [place], | | | | | [place] [address] | [place] [address] | | | | | [phone] | [phone] | | | | | | | [...] | | | | | | [place] [address] | | | | | | [phone] | | | | | | | | +--------+---------+ + + + | 08/23/ | Office | Cardiology | Reji Barrientos, | | | 2017 | Visit | | MD Kev[address] | | | | | | [place], | | | | | | [place] [address] | | | | | | [phone] | | | | | | | | +--------+---------+ + + + as of this encounter Visit Diagnoses Not on filein this encounter"
--- OUTSIDE RECORDS SUMMARY | ~2018-06-26 | XMS | Clinical Summary ---
Demographics + + + | Address | [address] | | | [place] [address] | + + + | Home Phone | | + + + | Preferred Language | Unknown | + + + | Marital Status | | + + + | Religion Affiliation | 1013 | + + + | Race | Unknown | + + + | Ethnic Group | Unknown | + + + Author + + + | Author | [facility] | | | and [place] | + + + | Organization | [facility] | | | and [place] [...] [place], [place] | | | | | [address] | | + + + + + | Kiara Villagran | ECON | [address] | | | | | [place], [place] | | | | | [address] | | + + + + + Care Team Providers + +------+ + | Care Research Professor Of Biostatistics Name | Role | Phone | + +------+ + | Woody Christiansen DO | PP | | + +------+ + Allergies + + + + + + | Active Allergy | Reactions | Severity | Noted | Comments | | | | | Date | | + + + + + + | Atropine | | | | | + + + + + + | Codeine Sulfate | | | | | + + + + + + | Diphenoxylate Hcl | | | | | + + + + + + | Levofloxacin | Other (See Comments) | High | 10/09/19 | Severe body aches | | | | | 14 | | + + + + + + | Lomotil | | | | | + + + + + + | Meperidine Hcl | | | | | + + + + + + | Metronidazole | Other (See Comments) | High | 10/09/19 | Severe body aches | | | | | 14 | | + + + + + + | Morphine | | | | | + + + + + + | Nitrofurantoin | Other (See Comments) | High | 01/28/20 | Nausea, flushing, | | Macrocrystal | | | 13 | tingling of skin. | + + + + + + | Propoxyphene Hcl | | | | | + + + + + + | Tramadol | Nausea And Vomiting | High | 10/09/19 | | | | | | 14 | | + + + + + + Current Medications + + +-------+---------+------+------+-------+ | Prescription | Sig. | Disp. | Refills | Star | End | Statu | | | | | | t | Date | s | | | | | | Date | | | + + +-------+---------+------+------+-------+ | ibuprofen (ADVIL, | Take 400 mg by mouth | | | 01/22 | | Activ | | MOTRIN) 400 mg | as needed. | | | 02/10 | | e | | tablet | | | | 12 | | | + + +-------+---------+------+------+-------+ | levothyroxine | Take 88 mcg by mouth | | | | | Activ | | (SYNTHROID, | every morning | | | | | e | | LEVOTHROID) 88 mcg | (before breakfast). | | | | | | | tablet | | | | | | | + + +-------+---------+------+------+-------+ | cyanocobalamin | Take 500 mcg by | | | | | Activ | | (VITAMIN B-12) 500 | mouth Daily. | | | | | e | | mcg tablet | | | | | | | + + +-------+---------+------+------+-------+ Active Problems + + + | Problem | Noted Date | + + + | Bradycardia | 04/04/2018 | + + + + + | Overview: 48-hour Holter monitor 04/10/2018 shows predominant | | rhythm is sinus bradycardia with the heart rate ranging between | | 32 and 81 beats per minute, average heart rate was 49 beats per | | minute during the 47:08 hour recording, very rare premature | | ventricular contractions including one couplet and one triplet, | | frequent to very frequent premature atrial contractions including | | 233 couplets and 358 SVE runs, longest run was 8 beats (19:56-2) | | and the maximum rate was 96 beats per minute (08:20-3), 646 | | pauses, the longest 3.51 seconds (03:15-2), an additional number | | (68) of beats were categorized as non-conducting p-waves, patient | | listed multiple symptoms of her heart pounding and dizziness, | | these all correlated with bradycardia.Echocardiogram 04/12/2018 | | shows normal left ventricular size, wall thickness and motion, | | preserved left ventricular systolic function. LVEF is 55-60%, | | grade 1 left ventricular diastolic dysfunction, mild aortic valve | | insufficiency, mild tricuspid valve regurgitation, normal | | right-sided pressure, normal IVC with normal respiratory | | collapse, there is a small circumferential pericardial effusion | | noted.Stress test 04/19/2018 shows regadenoson EKG is negative, | | normal regadenoson sestamibi myocardial perfusion study with a | | normal left ventricular size and wall thickness, preserved left | | ventricular systolic function, LVEF by gated SPECT 71 %. | + + + + + | Forgetfulness | 04/04/2018 | + + + | Gait disturbance | 04/04/2018 | + + + | Alzheimer's dementia | 04/04/2018 | + + + | Diverticulitis | 10/09/2013 | + + + | Preventative health care | 10/07/2013 | + + + + + | Overview: Pap: None FoundMammogram:Colonoscopy: 06/19/2011 | | Tortuous and redundant colon. Severe diverticulosis in the | | sigmoid colon. Narrowing of the colon in association with the | | diverticular opening. Evidence of spasm. No evidence of | | diverticular bleeding. Haustrations increased. Repeat in | | [id number]. Dexa: | | | |Dexa: | + + + + + | Dehydration | 02/10/2013 | + + + | Atrophic vaginitis | 01/27/2013 | + + + | HYPERLIPIDEMIA | 02/06/2012 | + + + | STRESS REACTION, ACUTE | 02/06/2012 | + + + | PALPITATIONS | 04/12/2011 | + + + | COLONIC POLYPS, HYPERPLASTIC, HX OF | 04/12/2011 | + + + | OSTEOPENIA | 04/12/2011 | + + + | SARAI'S THYROIDITIS | 09/11/2005 | + + + | DIVERTICULOSIS OF COLON | 09/11/2005 | + + + | Hypothyroidism | 09/11/2005 | + + + Encounters +--------+ + + + + | Date | Type | Specialty | Care Team | Description | +--------+ + + + + | 05/20/ | Office | | Rosa Barrientos, | Bradycardia (Primary | | 2017 | Visit | | | Dx); Palpitations | +--------+ + + + + | 05/20/ | Telephone | | Rosa Barrientos, | Other (more | | 2017 | | | MD | questions) | +--------+ + + + + | 04/29/ | Telephone | | Rosa Barrientos, | Other (low heart | | 2017 | | | MD | rate) | +--------+ + + + + | 04/24/ | Telephone | | Rosa Barrientos, | Other (stress test) | | 2017 | | | MD | | +--------+ + + + + | 04/19/ | Hospital | | Rosa Barrientos, | Bradycardia; | 2017 | Encounter | | MD | Abnormal EKG | +--------+ + + + + | 04/19/ | Hospital | | Rosa Barrientos, | Bradycardia; | | 2017 | Encounter | | Manager Study, | Abnormal EKG; | | | | | [facility] | Hyperlipidemia, | | | | | | unspecified | | | | | | hyperlipidemia type | +--------+ + + + + | 04/19/ | Ancillary | | Rosa Barrientos, | Bradycardia; | | 2017 | Orders | | MD | Abnormal EKG | +--------+ + + + + | 04/12/ | Hospital | | Rosa Barrientos, | Bradycardia; | 2017 | Encounter | | MD Pizarro, | Abnormal EKG | | | | | Cee, Ultrasound | | | | | | Tech | | +--------+ + + + + | 04/10/ | Hospital | | Rosa Barrientos, | Bradycardia; | 2017 | Encounter | | MD | Abnormal EKG | +--------+ + + + + | 04/05/ | Office | | Rosa Barrientos, | Bradycardia (Primary | 2017 | Visit | | MD | Dx); Abnormal EKG; | | | | | | Hyperlipidemia, | | | | | | unspecified | | | | | | hyperlipidemia type | +--------+ + + + + | 04/04/ | Telephone | | Rosa Barrientos, | Referral | | 2018 | | | MD | | +--------+ + + + + from Last 3 Months Immunizations + + + + | Name | Dates Previously Given | Next Due | + + + + | INFLUENZA PF | 05/30/2012 | | | TRIVALENT(PED/ADOL/A | | | | DULT)MASOOD | | | + + + + | TDAP, (ADOL/ADULT) | 09/11/2005 | | + + + + Family History + + +------+ + | Medical History | Relation | Name | Comments | + + +------+ + | Bipolar disorder | Daughter | | | + + +------+ + | Other (see comment) | Daughter | | Asthmatic | + + +------+ + | Colon polyps | Father | | Alive | + + +------+ + | Cancer | Maternal | | in 60's | | | Grandfath | | | | | er | | | + + +------+ + | Parkinsonism | Maternal | | in 60's | | | Grandmoth | | | | | er | | | + + +------+ + | Depression | Mother | | | + + +------+ + | Suicide | Mother | | | + + +------+ + | Emphysema | Other | | | + + +------+ + | Lung cancer | Other | | | + + +------+ + | Alcohol abuse | Other | | Thyroid | + + +------+ + | Tobacco Use | Other | | | + + +------+ + | Depression | Other | | | + + +------+ + | Diabetes | Paternal | | | | | Grandfath | | | | | er | | | + + +------+ + | Parkinsonism | Paternal | | | | | Grandmoth | | | | | er | | | + + +------+ + + +------+ + + | Relation | Name | Status | Comments | + +------+ + + | Daughter | | | | + +------+ + + | Daughter | | | | + +------+ + + | Father | | Alive | | + +------+ + + | Maternal Grandfather | | | | + +------+ + + | Maternal Grandmother | | | | + +------+ + + | Mother | | | | + +------+ + + | Other | | | | + +------+ + + | Other | | | | + +------+ + + | Other | | | | + +------+ + + | Other | | | | + +------+ + + | Other | | | | + +------+ + + | Paternal Grandfather | | | | + +------+ + + | Paternal Grandmother | | | | + +------+ + + Social History + +-------+ +--------+------+ [...] on file | | + + + Last Filed Vital Signs + + + + | Vital Sign | Reading | Time Taken | + + + + | Blood Pressure | 92/60 | 05/20/2018 1345 PDT | + + + + | Pulse | 52 | 05/20/2018 1345 PDT | + + + + | Temperature | 37 C (98.6 F) | 10/09/2013 0910 PST | + + + + | Respiratory Rate | 18 | 05/20/20181344 PDT | + + + + | Oxygen Saturation | 98% | 10/09/2013 0910 PST | + + + + | Inhaled Oxygen | - | - | | Concentration | | | + + + + | Weight | 55.8 kg (123 lb 0.3 | 05/20/20181344 PDT | | | oz) | | + + + + | Height | 160 cm (5' 3") | 05/20/20181344 PDT | + + + + | Body Mass Index | 21.79 | 05/20/20181344 PDT | + + + + Plan of Treatment +--------+---------+ + + + | Date | Type | Specialty | Care Team | Description | +--------+---------+ + + + | 06/27/ | Office | | Brendon, | | | 2017 | Visit | | CHRISTINA Cordova | | | | | | [place], | | | | | | [place] [address] | | | | | | [phone] | | | | | | | | +--------+---------+ + + + | 08/23/ | Office | | Rosa Barrientos, | | | 2017 | Visit | | MD Kevon Thomas | | | | | | [place], | | | | | | [place] [id number] | | | | | | [phone] | | | | | | | | +--------+---------+ + + + + + + + + | Health Maintenance | Due Date | Last Done | Comments | + + + + + | Hepatitis C | | | | | Screening | 7 | | | + + + + + | Vaccine: Zoster (1 | | | | | of 2) | 7 | | | + + + + + | Vaccine: | | | | | Pneumococcal 65+ | 2 | | | | Low/Medium Risk (1 | | | | | of 2 - PCV13) | | | | + + + + + | BREAST CANCER | | 04/26/2010 | | | SCREENING (MAMM Q2 | 2 | | | | YEARS 50-74) | | | | + + + + + | Vaccine: | | 09/11/2005 | | | Dtap/Tdap/Td (2 - | 5 | | | | Td) | | | | + + + + + | Vaccine: Influenza | | 05/30/2012 | | | (#1) | 8 | | | + + + + + | Colorectal Cancer | | 06/19/2011 | | | Screening | 1 | | | | (Colonoscopy) | | | | + + + + + Procedures + +--------+ + + + | [...] | + +--------+ + + + | ECHO COMPLETE | Routin | 04/12/2018 | Bradycardia | Results for this | | | e | 1554 PDT | Abnormal EKG | procedure are [...] | + +--------+ + + + | ECG 12 LEAD | Routin | 04/05/2018 | Bradycardia | Results for this | | | e | 1245 PDT | | procedure are in the | | | | | | results section. | + +--------+ + + + from Last 3 Months Results NM Nuclear Stress Test (Vasodilator) (04/19/2018 [...] by gated SPECT 71 b%. Signed by: Rosa | | | MD Iliana [facility] 04/19/2018, 10:48 | | + + + + + ---+ | Narrative | Performed A t | + + ---+ | | [facility] | | NUCLEAR MEDICINE STRESS TEST REPORT Patient Name: Javier Ponce | | | Elisa Study Date: 04/19/2018 Primary Care Provider: Woody [...] | | | + +---------+ + + Lipid Panel (04/19/2018919) + + + + [...] HDL | 28 - 83 mg/dL | [facility] | | | Reference Range as of | | [facility] | | | June 03, 2015 | | CENTER - | | | Values may be 10-20% | | LABORATORY | | | lower with new, | | | | | standardized method. | | | + + + + + | Chol/HDL Ratio | 3.3 | | [facility] | | | | | [facility] | | | | | CENTER - | | | | | LABORATORY | + + + + + | LDL, Calculated | 100 | <=130 mg/dL | [facility] | | | | | [facility] | | | | | CENTER - | | | | | LABORATORY | + + + + + + + | Specimen | + + | Blood | + + + + + + + | Performing | Address | City/State/Zipcode | Phone Number | | Organization | | | | + + + + + | [facility] | [address] | [place] | [phone] | | [facility] | | [address] | | | - LABORATORY | | | | + + + + + | [facility] | [address] | [place] | | | [facility] | | [address] | | | - LABORATORY | | [...] 0.10 | 0.00 - 0.10 K/uL | [facility] | | | [...] + | [facility] | [address] | [place], [place] | [phone] | | [facility] | | [address] | | | - LABORATORY | | | | + + + + + | [facility] | [address] | [place], [place] | | | [facility] | | [address] | | | - LABORATORY | | | | + + + + + TSH (04/19/2018919) + + + + + | Component | Value | Ref Range | Performed At | + + + + + | TSH | 0.09 (L)Comment: This is | 0.45 - 5.33 uIU/mL | [facility] | | | a third generation TSH | | [facility] | | | test. | | CENTER [...] + | [facility] | [address] | [place] | [phone] | | [facility] | | [address] | | | - LABORATORY | | | | + + + + + | [facility] | [address] | [place] | | | [facility] | | [address] | | | - LABORATORY | | | | + + + + + Comprehensive Metabolic Panel (04/19/2018919) + + + + + | Component | Value | Ref Range | Performed At | + + + + + | NA | 140 | 136 - 149 mmol/L | [facility] | | | | | [facility] | | | | | CENTER - [...] 106 | 70 - 109 mg/dL | [facility] | | | | | [facility] | | | | | CENTER - | | | | | LABORATORY | + + + + + | BUN | 17 | 7 - 18 mg/dL | [facility] | | | | | [facility] | | | | | CENTER - | | | | | LABORATORY | + + + + + | Creatinine, | 0.88 | 0.60 - 1.30 mg/dL | [facility] | | Serum/Plasma | | | [facility] | | | | | CENTER - | | | | | LABORATORY | + + + + + | eGFR if not | >60Comment: GLOMERULAR | >=60 mL/min/1.73m2 | [facility] | | ARMENIAN | FILTRATION | | [facility] | | | RATE,ESTIMATED mL/min | | CENTER - | | | /1.45g8Kzch than 60 | | LABORATORY | | [...] [facility] | | | | | [facility] | | | | | CENTER [...] + | [facility] | [address] | [place] | [phone] | | [facility] | | [address] | | | - LABORATORY | | | | + + + + + | [facility] | [address] | [place], [place] | | | [facility] | | [address] | | | - LABORATORY | | | | + + + + + ECHO Complete (04/12/2018 1554) + +-------+ + + | Component | Value | Ref Range | Performed At | + +-------+ + + | LVEF-TTE | 55 | | [facility] | | TRANSTHORACIC ECHO | | | | + +-------+ + + + +--------- ------+ | Narrative | Performe d At | + +--------- ------+ | Transthoracic | [facility] | | Echocardiography Report (TTE) Demographics Patient Name ELISA | | | JAVIER Room Number PONCE | | | Patient Number [id number] Date of | | | Study 04/12/2018 Visit Number [id number] | | | Referring | | | Physician ILIANA LEE Number Date of | | | 1945 | | | Millinery Blocker LINDSAY ESTRADA | | | Age 72 year(s) | | | Interpreting ROSA | | | ILIANA, | | | Manager Study | | | MD | | | ILIANA LEE | | | Gender Female Nurse | | | | | | Stress Banquet Pilot Procedure Type of Study TTE procedure: ECHO | | | Complete. Procedure dateDate: 04/12/2018Start: 03:04 PM Technical | | | Quality: Adequate visualizationStudy Location: Echo LabIndications: | | | Bradycardia 427.81/R00.1.Patient Status: RoutineHeight: 63 | | | inchesWeight: 122 poundsBSA: 1.57 m^2BMI: 21.61 kg/m^2Rhythm: Sinus | | | bradycardia ConclusionsSummary1. Normal left ventricular size, wall | | | thickness and motion. Preserved leftventricular systolic function. | | | LVEF is 55-60%.2. Grade 1 left ventricular diastolic dysfunction.3. | | | Mild aortic valve insufficiency.4. Mild tricuspid valve | | | regurgitation.5. Normal right-sided pressure.6. Normal IVC with normal | | | respiratory collapse.7. There is a small circumferential pericardial | | | effusion noted. | | | Signature | | | | | | PM | | | -------- FindingsMitral ValveStructurally normal mitral valve without | | | significant stenosis.Aortic ValveAortic valve appears trileaflet.Mild | | | aortic regurgitation is noted.Tricuspid ValveStructurally normal | | | tricuspid valve with mild regurgitation.Pulmonic ValveNormal pulmonic | | | valve structure and function. Normal pulmonary valve andRVOT flow by | | | color and Doppler flow imaging.Left AtriumNormal size left atrium.Left | | | VentricleLeft ventricle is normal in size and function. Ejection | | | fraction isestimated at 55-60 %.Impaired relaxation compatible with | | | diastolic dysfunction (reversed E/Aratio).Right AtriumNormal right | | | atrial size.Right VentricleNormal right ventricular size.Right | | | ventricle global systolic function is normal.TAPSE = 3.1 | | | cm.Pericardial EffusionThere is a small circumferential pericardial | | | effusion noted.Pleural EffusionNo evidence of pleural | | | effusion.MiscellaneousThe IVC is normal in size and collapses with | | | inspiration.Aortic root dimension within normal limits. Valves Mitral | | | Valve Peak E-Wave: 0.63 m/s Peak A-Wave: 0.84 m/s Tissue Doppler | | | Septal e' Velocity: 0.04 m/s Septal E/e' Ratio:15 Aortic Valve Peak | | | Velocity: 1.09 m/s Peak Gradient: 4.78 mmHg AI P1/2t: 998.86 msec | | | Tricuspid Valve TR Velocity: 2.14 m/s LVOT Peak Velocity: 0.86 m/s | | | Structures Left Atrium LA A/P Dimension: 2.4 | | | cm LA Volume: 49.68 ml LA Vol/BSA | | | Index: 32 mL/m^2 Left Ventricle Diastolic Dimension: 4.7 | | | cm Systolic Dimension: 2.97 cm Septum Diastolic: 0.63 | | | cm PW Diastolic: 0.82 cm EF Bijxnnhhf83% EF Calculated: 54% | | | Miscellaneous Aorta Aortic Root: 3.71 cm | | |Structurally normal mitral valve without significant stenosis. | | |Aortic Valve | | |Aortic valve appears trileaflet. | | |Mild aortic regurgitation is noted. | | |Tricuspid Valve | | |Structurally normal tricuspid valve with mild regurgitation. | | |Pulmonic Valve | | |Normal pulmonic valve structure and function. Normal pulmonary valve and | | |RVOT flow by color and Doppler flow imaging. | | |Left Atrium | | |Normal size left atrium. | | |Left Ventricle | | |Left ventricle is normal in size and function. Ejection fraction is | | |estimated at 55-60 %. | | |Impaired relaxation compatible with diastolic dysfunction (reversed E/A | | |ratio). | | |Right Atrium | | |Normal right atrial size. | | |Right Ventricle | | |Normal right ventricular size. | | |Right ventricle global systolic function is normal. | | |TAPSE = 3.1 cm. | | |Pericardial Effusion | | |There is a small circumferential pericardial effusion noted. | | |Pleural Effusion | | |No evidence of pleural effusion. | | |Miscellaneous | | |The IVC is normal in size and collapses with inspiration. | | |Aortic root dimension within normal limits. | | | | | |Valves | | | | | | Mitral Valve | | | | | | Peak E-Wave: 0.63 m/s | | | Peak A-Wave: 0.84 m/s | | | | | | Tissue Doppler | | | | | | Septal e' Velocity: 0.04 m/s | | | Septal E/e' Ratio:15 | | | | | | Aortic Valve | | | | | | Peak Velocity: 1.09 m/s | | | Peak Gradient: 4.78 mmHg | | | AI P1/2t: 998.86 msec | | | | | | Tricuspid Valve | | | | | | TR Velocity: 2.14 m/s | | | | | | LVOT | | | | | | Peak Velocity: 0.86 m/s | | | | | |Structures | | | | | | Left Atrium | | | | | | LA A/P Dimension: 2.4 cm LA Volume: 49.68 ml | | | LA Vol/BSA Index: 32 mL/m^2 | | | | | | Left Ventricle | | | | | | Diastolic Dimension: 4.7 cm Systolic Dimension: 2.97 cm | | | Septum Diastolic: 0.63 cm | | | PW Diastolic: 0.82 cm | | | EF Xyehwvopl29% | | | EF Calculated: 54% | | | | | | Miscellaneous | | | | | | Aorta | | | | | | Aortic Root: 3.71 cm | | | | | + +--------- ------+ + + | Procedure Note | + + | Gio, Rad Results In - 04/12/2018 1608 PDT Transthoracic Echocardiography Report (TTE) | | | | Demographics | | | | Patient Name ELISA HERRERA Room Number | | PAULA | | | | Patient Number [id number] Date of Study 04/12/2018 | | | | Visit Number [id number] | | | | Referring Physician ILIANA LEE | | Number | | | | Date of 1945 Millinery Blocker LINDSAY ESTRADA | | | | Age 72 year(s) Interpreting ROSA BARRIENTOS, | | Manager Study | | ILIANA LEE | | | | Gender Female Nurse | | | | Stress Banquet Pilot | | | | Procedure | | | | Type of Study | | | | TTE procedure: ECHO Complete. | | | | Procedure date | | Date: 04/12/2018Start: 03:04 PM | | | | Technical Quality: Adequate visualizationStudy Location: Echo Lab | | Indications: Bradycardia 427.81/R00.1. | | Patient Status: Routine | | Height: 63 inchesWeight: 122 poundsBSA: 1.57 m^2BMI: 21.61 kg/m^2 | | Rhythm: Sinus bradycardia | | | | Conclusions | | Summary | | 1. Normal left ventricular size, wall thickness and motion. Preserved left | | ventricular systolic function. LVEF is 55-60%. | | 2. Grade 1 left ventricular diastolic dysfunction. | | 3. Mild aortic valve insufficiency. | | 4. Mild tricuspid valve regurgitation. | | 5. Normal right-sided pressure. | | 6. Normal IVC with normal respiratory collapse. | | 7. There is a small circumferential pericardial effusion noted. | | | | Signature | | | | Electronically signed by ROSA BARRIENTOS MD(Interpreting physician) on | | 04/12/2018 04:08 PM | | | | | | Findings | | Mitral Valve | | Structurally normal mitral valve without significant stenosis. | | Aortic Valve | | Aortic valve appears trileaflet. | | Mild aortic regurgitation is noted. | | Tricuspid Valve | | Structurally normal tricuspid valve with mild regurgitation. | | Pulmonic Valve | | Normal pulmonic valve structure and function. Normal pulmonary valve and | | RVOT flow by color and Doppler flow imaging. | | Left Atrium | | Normal size left atrium. | | Left Ventricle | | Left ventricle is normal in size and function. Ejection fraction is | | estimated at 55-60 %. | | Impaired relaxation compatible with diastolic dysfunction (reversed E/A | | ratio). | | Right Atrium | | Normal right atrial size. | | Right Ventricle | | Normal right ventricular size. | | Right ventricle global systolic function is normal. | | TAPSE = 3.1 cm. | | Pericardial Effusion | | There is a small circumferential pericardial effusion noted. | | Pleural Effusion | | No evidence of pleural effusion. | | Miscellaneous | | The IVC is normal in size and collapses with inspiration. | | Aortic root dimension within normal limits. | | | | Valves | | | | Mitral Valve | | | | Peak E-Wave: 0.63 m/s | | Peak A-Wave: 0.84 m/s | | | | Tissue Doppler | | | | Septal e' Velocity: 0.04 m/s | | Septal E/e' Ratio:15 | | | | Aortic Valve | | | | Peak Velocity: 1.09 m/s | | Peak Gradient: 4.78 mmHg | | AI P1/2t: 998.86 msec | | | | Tricuspid Valve | | | | TR Velocity: 2.14 m/s | | | | LVOT | | | | Peak Velocity: 0.86 m/s | | | | Structures | | | | Left Atrium | | | | LA A/P Dimension: 2.4 cm LA Volume: 49.68 ml | | LA Vol/BSA Index: 32 mL/m^2 | | | | Left Ventricle | | | | Diastolic Dimension: 4.7 cm Systolic Dimension: 2.97 cm | | Septum Diastolic: 0.63 cm | | PW Diastolic: 0.82 cm | | EF Vckomxycf01% | | EF Calculated: 54% | | | | Miscellaneous | | | | Aorta | | | | Aortic Root: 3.71 cm | + + + +---------+ + + | Performing | Address | City/State/Zipcode | Phone Number | | Organization | | | | + +---------+ + + | [facility] | | | | + +---------+ + + Holter monitor - 48 hour (04/12/2018 1528) + + + | Narrative | Performed At | + + + | Rosa Barrientos MD 04/12/2018 15:37 PATIENT | [facility] | | NAME: Javier Pérez : 1945: AGE: 72 | | | y.o. PRIMARY CARE: Woody | | | DO KAREN Christiansen MAINTENANCE FITTER: Rosa Barrientos MD | | | 48-HOUR HOLTER [...] with bradycardia. Signed by: | | | Rosa Barrientos MD [facility] 04/12/2018, 15:28 | | + + + + +---------+ + + | Performing | Address | City/State/Zipcode | Phone Number | | Organization | | | | + +---------+ + + | [facility] | | | | + +---------+ + + ECG 12 lead (04/05/2018 1245) + + + + + | Component | Value | Ref Range | Performed At | + + + + + | VENTRICULAR RATE EKG | 40 | BPM | [facility] | + + + + + | ATRIAL RATE | 40 | BPM | [facility] | + + + + + | P-R INTERVAL | 182 | ms | [facility] | + + + + + | QRS DURATION | 78 | ms | [facility] | + + + + + | Q-T INTERVAL | 512 | ms | [facility] | + + + + + | Q-T INTERVAL | 417 | ms | [facility] | | (CORRECTED) | | | | + + + + + | P WAVE AXIS | 19 | degrees | [facility] | + + + + + | QRS AXIS | 0 | degrees | [facility] | + + + + + | T AXIS | -34 | degrees | [facility] | + + + + + | INTERPRETATION TEXT | Marked sinus bradycardia | | [facility] | | | with marked sinus | | | | | arrhythmiaAnterior | | | | | infarct , age | | | | | undeterminedAbnormal | | | | | ECGNo previous ECGs | | | | | availableConfirmed by | | | | | ROSA BARRIENTOS MD | | | | | ([id number]) on 04/05/2018 | | | | | 4:54:13 PM | | | + + + + + + + + | Narrative | Performed At | + + + | | | + + + + +---------+ + + | Performing | Address | City/State/Zipcode | Phone Number | | Organization | | | | + +---------+ + + | [facility] | | | | + +---------+ + + from Last 3 Months Insurance + +--------+ +--------+ +---------+ | Payer | Benefi | Subscriber | Type | Phone | Address | | | t Plan | ID | | | | | | / | | | | | | | Group | | | | | + +--------+ +--------+ +---------+ | MEDICARE | MEDICA | [id number] | Medica | +- | | | | RE | | re | [phone] | | | | PART A | | | | | | | AND B | | | | | + +--------+ +--------+ +---------+ | [employer] [place] | UNITED | [id number] | Indemn | [phone] | | | OF | | ity | 1000 | | | | [place] | | | | | | | MDCR | | | | | | | SUPPL | | | | | + +--------+ +--------+ +---------+ + +--------+ +--------+ + + | Guarantor Name | Accoun | Relation to | Date | Phone | Billing Address | | | t Type | Patient | of | | | | | | | | | | + +--------+ +--------+ + + | JAVIER PÉREZ | Person | Self [birth year] | Home: | [address] | | | al/Fam | | 1946 | [phone] | [place] [address] | | | kayla | | | [phone] | | + +--------+ +--------+ + +
--- OUTSIDE RECORDS SUMMARY | ~2018-06-26 | XMS | Clinical Summary ---
Demographics + + + | Address | [address] | | | [place] [address] | + + + | Home Phone | | + + + | Preferred Language | Unknown | + + + | Marital Status | | + + + | Sabianist Affiliation | Unknown | + + + | Race | Unknown | + + + | Ethnic Group | Unknown | + + + Author + + + | Author | [facility] | + + + | Organization | [facility] | + + + | Address | Unknown | + + + | Phone | Unavailable | + + + Support + + +---------+ + | Name | Relationship | Address | Phone | + + +---------+ + | Irwin Pastrana | CELESTINO | Unknown | | + + +---------+ + Care Team Providers + +------+ + | Care Medical Doctor Nuclear Medicine Name | Role | Phone | + +------+ + | Woody Christiansen MD | PP | | + +------+ + Allergies Not on File Current Medications Not on file Active Problems Not on file Social History + +-------+ +--------+------+ | Tobacco Use | Types | Packs/Day | Years | Date | | | | | Used | | + +-------+ +--------+------+ | Never Assessed | | | | | + +-------+ +--------+------+ + + + | Sex Assigned at | Date Recorded | | | | + + + | Not on file | | + + + Plan of Treatment +--------+---------+ + + + | Date | Type | Specialty | Care Team | Description | +--------+---------+ + + + | 07/19/ | Office | | Greg White MD [address] | | | 2017 | Visit | | [place], | | | | | | [place] [address] | | | | | | [phone] | | | | | | | | +--------+---------+ + + + | 09/27/ | Office | | Greg White MD [address] | | | 2018 | Visit | | [place], | | | | | | [place] [address] | | | | | | [phone] | | | | | | | | +--------+---------+ + + + + + + + + | Health Maintenance | Due Date | Last Done | Comments | + + + + + | Vaccine: | 01/08/196 | | | | Dtap/Tdap/Td (1 - | 6 | | | | Tdap) | | | | + + + + + | Breast Cancer | | | | | Screening | 7 | | | | (Mammogram) | | | | + + + + + | Colon Cancer | | | | | Screening | 7 | | | | (Colonoscopy) | | | | + + + + + | Vaccine: Zoster (1 | | | | | of 2) | 7 | | | + + + + + | DEXA SCAN SCREENING | | | | | | 2 | | | + + + + + | Vaccine: | | | | | Pneumococcal 65+ | 2 | | | | Low/Medium Risk (1 | | | | | of 2 - PCV13) | | | | + + + + + | Vaccine: Influenza | | | | | (#1) | 8 | | | + + + + + Results Not on filefrom Last 3 Months Insurance + +--------+ +------+-------+ + | Payer | Benefi | Subscriber | Type | Phone | Address | | | t Plan | ID | | | | | | / | | | | | | | Group | | | | | + +--------+ +------+-------+ + | MEDICARE | MEDICA | [id number] | | | [address] | | | RE | | | | [place] [id number] | | | IP-OP | | | | | + +--------+ +------+-------+ + | [employer] [place] | MUTUAL | [id number] | | | | | | OF | | | | | | | [place] | | | | | + +--------+ +------+-------+ + + +--------+ +--------+ + + | Guarantor Name | Accoun | Relation to | Date | Phone | Billing Address | | | t Type | Patient | of | | | | | | | | | | + +--------+ +--------+ + + | YUDITH OREILLY | Person | Self | [birth year] | Home: | [address] | | | al/Fam | | 1946 | [phone] | [place] [address] | | | kayla | | | [phone] | | + +--------+ +--------+ + +"
--- OUTSIDE RECORDS SUMMARY | ~2018-06-26 | XMS | Encounter Summary ---
Demographics + + + | Address | [address] | | | [place] [address] | + + + | Home Phone | | + + + | Preferred Language | Unknown | + + + | Marital Status | | + + + | Alevism Affiliation | 1013 | + + + | Race | Unknown | + + + | Ethnic Group | Unknown | + + + Author + + + | Author | [facility] | | | and Fidelana | + + + | Organization | [facility] | | | and [...] [place], [place] | | | | | [address] | | + + + + + | Kiara Villagran | ECON | [address] | | | | | [place], [place] | | | | | [address] | | + + + + + Care Team Providers + +------+ + | Care Seamless Tube Roller Name | Role | Phone | + [...] Abnormal | [address] | [address] | | | | | EKG | [address] | [place], | | | | | Procedures | [place], | [place] | | | | | [place] Nuclear | [place] [address] | [address] | | | | | Stress Test | Phone: | Phone: | | | | | (Vasodilator | [phone] | [phone] | | | | | ) [place] | Fax: | Fax: | | | | | Nuclear | [phone] | [phone] | | | | | Stress Test [...] CARDIOLOGY [address] | MD [address] | Abnormal EKG | | | | [address] [place], | [place], | | | | | [place] [address] | [place] [address] | | | | | [phone] | [phone] | | | | | | | [...] [place], | | | | | | [place] [address] | | | | | | [phone] | | | | | | | | +--------+---------+ + + + | 08/23/ | Office | Cardiology | Reji Barrientos, | | | 2017 | Visit | | [address] | | | | | | [place], | | | | | | [place] [address] | | | | | | [phone] | | | | | | | | +--------+---------+ + + + as of this encounter Results [place] Nuclear Stress Test (Vasodilator) (04/19/2018 1047) + [...] by: Reji | | | MD Iliana [facility] 04/19/2018, 10:48 | | + + [...]
--- OUTSIDE RECORDS SUMMARY | ~2018-06-26 | XMS | Encounter Summary ---
Demographics + + + | Address | [address] | | | [place] [address] | + + + | Home Phone | | + + + | Preferred Language | Unknown | + + + | Marital Status | | + + + | Mu-Ism Affiliation | 1013 | + + + | Race | Unknown | + + + | Ethnic Group | Unknown | + + + Author + + + | Author | [facility] | | | and Fidelana | + + + | Organization | [facility] | | [...] [place], [place] | | | | | [address] | | + + + + + | Kiara Villagran | ECON | [address] | | | | | [place], [place] | | | | | [address] | | + + + + + Care Team Providers + +------+ + | Care Arc Cutter Plasma Arc Name | Role | Phone | + [...] | Radiology | Diagnoses | Iliana, | [facility] | | | | | Bradycardia | MD Rosa | [address] | | | | | Abnormal | [address] | [place], | | | | | EKG | [address] | [place] | | | | | Procedures | [place], | [address] | | | | | ECHO | [place] [address] | Phone: | | | | | Complete [place] | Phone: | [phone] | | | | | ECHO HEART | [phone] | Fax: | | | | | [place] | Fax: | [phone] | | | | | MPLETE W | [phone] | | | | | | DOPPLER [place] | | | | | | | ECHO HEART | | | | | | | [place] | | | | | | | MPLETE, W/O | | | | | | | DOPPLER | | | +--------+--------+ + + + + Reason for Visit + + + | Reason | Comments | + + + | New Patient | | + + + | Bradycardia | | + + + Evaluate & Treat (Routine) +--------+--------+ + + + + | Status | Reason | Specialty | Diagnoses / | Referred By | Referred To | | | | | Procedures | Contact | Contact | +--------+--------+ + + + + | Closed | | Cardiology | Diagnoses | Kuldip, | Iliana | | | | | Bradycardia | DO Woody | MD Rosa | | | | | Procedures | [address] | [address] | | | | | [place] OFFICE | [address] | [address] | | | | | CONSULTATION | [facility] [place] | [place], | | | | | [facility] | [address] | [place] [address] | | | | | PATIENT 41 | Phone: | Phone: | | | | | MIN FUEL CELL BINDER - | [phone] | [phone] | | | | | LAST SEEN | | Fax: | | | | | 2006 | | [phone] | +--------+--------+ + + + + Encounter Details +--------+---------+ + + + | Date | Type | Department | Care Team | Description | +--------+---------+ + + + | 04/05/ | Office | [facility] | Rosa Barrientos, | Bradycardia (Primary | | 2018 | Visit | CARDIOLOGY [address] | MD [address] | Dx); Abnormal EKG; | | | | [address] [place], | [place], | Hyperlipidemia, | | | | [place] [address] | [place] [address] | unspecified | | | | [phone] | [phone] | hyperlipidemia type | | | | | | | [...] + + + | Blood Pressure | 120/68 | 04/05/2018 1243 PDT | + + + + | Pulse | 40 | 04/05/20183 PDT | + + + + | Temperature | - | - | + + + + | Respiratory Rate | 16 | 04/05/20183 PDT | + + + + | Oxygen Saturation | - | - | + + + + | Inhaled Oxygen | - | - | | Concentration | | | + + + + | Weight | 55.4 kg (122 lb 2.2 | 04/05/2018 1243 PDT | | | oz) | | + + + + | Height | 160 cm (5' 3") | 04/05/2018 1243 PDT | + + + + | Body Mass Index | 21.64 | 04/05/2018 1243 PDT | + + + + in this encounter Instructions Patient Instructions - Hunter Brewster RN - 04/05/2018 1300 PDT Blood test: Fasting- 12 hours prior to test, no food, no caffiene, water is ok Date Due: Now Where to go for labs: Lab of your choice, please see lab orders, take them with you to the lab. Holter Monitor : 48 hour Date: Check-In Time: Where to Check in: Exercise Myoview Date: Check-in Time: Where to Check In: Instructions 1. Nothing to eat or drink anything 4 hours prior to test 2. DO NOT drink caffeine 12 hours prior to the test. 3. You can take all other medications the morning of the test with a small sip of water. 4. Please bring a list of your current medications with you. 5. Straight Treadmill or Exercise Myoview: wear comfortable clothes and walking shoes. Resting Portion of test: Date: Check-in Time: Where to Check In: Echo: Date: Check-In Time: Where to Check In: Follow up appointment: 6 weeks Provider: Date: Check-In Time: in this encounter Progress Notes Rosa Barrientos MD - 04/05/2018 1300 PDTFormatting of this note may be different from th e original. PATIENT NAME: Javier Oreilly : 1945: AGE: 72 y.o. REFERRED BY: Woody Christiansen PRIMARY CARE: Woody Christiansen DO NEW PATIENT OFFICE VISIT Date of Service: 04/05/18 HISTORY OF PRESENT ILLNESS: Javier Oreilly is a 72 y.o. female with a history of hypothyroidism. She is being seen today for bradycardia and palpitations. Patient was in her usual state of health until December she was seen at [facility] for head pain. At that time she had a heart beat that went down to 30 beats per minute and was diagnosed with bradycardia. She denied any dizziness and lightheadedness. Today, patient reports feeling palpitations. She also reports getting more tired going up a nd down the stairs at her appartment. Patient is physically active gardening. There is no ch est pain or chest discomfort both at rest and on exertion. Patient denies breathlessness. Th ere is no dizziness or lightheadedness. There is no ankle or leg swelling. Patient can slee p on one pillow at night without difficulty breathing. CURRENT PROBLEMS Patient Active Problem List Diagnosis SARAI'S THYROIDITIS DIVERTICULOSIS OF COLON Hypothyroidism PALPITATIONS COLONIC POLYPS, HYPERPLASTIC, HX OF OSTEOPENIA HYPERLIPIDEMIA STRESS REACTION, ACUTE Atrophic vaginitis Dehydration Preventative health care Diverticulitis Bradycardia Forgetfulness Gait disturbance Alzheimer's dementia MEDICAL, SURGICAL, AND PERSONAL HISTORY Past Surgical History: Procedure Laterality Date APPENDECTOMY 1963 HYSTERECTOMY 1985 SMALL INTESTINE SURGERY 2004? TONSILLECTOMY 1950 Family History Problem Relation Age of Onset Suicide Mother 68 Depression Mother Emphysema Other Lung cancer Other Alcohol abuse Other Thyroid Cancer Maternal Grandfather in 60's Tobacco Use Other Parkinsonism Maternal Grandmother in 60's Colon polyps Father Alive Diabetes Paternal Grandfather Parkinsonism Paternal Grandmother Bipolar disorder Daughter Depression Other Other (see comment) Daughter Asthmatic Family Status Relation Status Mother (Not Specified) Other (Not Specified) Other (Not Specified) Other (Not Specified) MGF (Not Specified) Other (Not Specified) MGM (Not Specified) Father (Not Specified) PGF (Not Specified) PGM (Not Specified) Daughter (Not Specified) Other (Not Specified) Daughter (Not Specified) Social History Social History Marital status: Spouse name: N/A Number of children: 2 Years of education: N/A Occupational History [employer] Retired Social History Main Topics Smoking status: Never Smoker Smokeless tobacco: Never Used Alcohol use No Drug use: No Sexual activity: Not Asked Other Topics Concern None Social History Narrative Born in [place], [place] since childhood CURRENT MEDICATIONS Current Outpatient Prescriptions Medication Sig [...] ROS Review of Systems Constitutional: Negative for chills, diaphoresis, fever, malaise/fatigue and weight loss. HENT: Negative for congestion, hearing loss, nosebleeds and tinnitus. Dental Problems = No Eyes: Negative for blurred vision and double vision. Respiratory: Negative for shortness of breath. Cardiovascular: Positive for palpitations. Negative for chest pain and leg swelling. Gastrointestinal: Negative for blood in stool, constipation, diarrhea, nausea and vomiting. Genitourinary: Negative for dysuria, frequency, hematuria and urgency. Musculoskeletal: Negative for back pain, falls, joint pain, myalgias and neck pain. Gait Problems = No Skin: Negative for itching and rash. Neurological: Negative for dizziness, tingling, tremors, speech change, seizures, loss of c onsciousness and weakness. Lightheaded = No Endo/Heme/Allergies: Does not bruise/bleed easily. Psychiatric/Behavioral: Negative for memory loss. The patient is not nervous/anxious and do es not have insomnia. OBJECTIVE: PHYSICAL EXAM BP 120/68 | Pulse (!) 40 | Resp 16 | Ht 1.6 m (5' 3") | Wt 55.4 kg (122 lb 2.2 oz) | B NE 21.64 kg/m Physical Exam Constitutional: She is oriented to person, place, and time. She appears well-developed and well-nourished. No distress. Female individual accompanied by her , no acute distress. HENT: Head: Normocephalic. Eyes: Lids are normal. Neck: Normal carotid pulses, no hepatojugular reflux and no JVD present. Carotid bruit is n ot present. Cardiovascular: Normal rate, regular rhythm, normal heart sounds and normal pulses. PMI is not displaced. Exam reveals no gallop, no S3 and no S4. No murmur heard. Pulses: Carotid pulses are 2+ on the right side, and 2+ on the left side. Radial pulses are 2+ on the right side, and 2+ on the left side. Femoral pulses are 2+ on the right side, and 2+ on the left side. Dorsalis pedis pulses are 2+ on the right side, and 2+ on the left side. Posterior tibial pulses are 2+ on the right side, and 2+ on the left side. Pulmonary/Chest: Effort normal and breath sounds normal. No accessory muscle usage. No resp iratory distress. She has no wheezes. She has no rhonchi. She has no rales. Abdominal: Normal appearance. There is no hepatosplenomegaly. There is no tenderness. Musculoskeletal: She exhibits no edema. Neurological: She is alert and oriented to person, place, and time. Gait normal. Skin: Skin is warm and dry. No cyanosis. Nails show no clubbing. Psychiatric: She has a normal mood and affect. Her mood appears not anxious. She does not e xhibit a depressed mood. ECG: Marked sinus bradycardia, anterior wall NE age undetermined. LAB RESULTS: LIPID Lab Results Component Value Date CHOL 154 10/09/2013 TRIG 72 10/09/2013 HDL 57 10/09/2013 LDL 83 10/09/2013 CHOLHDL 2.7 10/09/2013 CHEMISTRY Lab Results Component Value Date GLU 89 11/11/2013 NA 139 11/11/2013 K 4.1 11/11/2013 CL 108 11/11/2013 CO2 26 11/11/2013 CALCIUM 9.3 11/11/2013 ALKPHOS 50 11/11/2013 AST 23 10/09/2013 ASTEX 24 11/11/2013 ALT 18 10/09/2013 ALTEX 24 11/11/2013 BILITOT 1.3 (A) 11/11/2013 CREA 0.72 10/09/2013 BUN 15 11/11/2013 EGFR >60 10/09/2013 EGFREX >60 11/11/2013 CREEX 0.8 11/11/2013 HEMATOLOGY Lab Results Component Value Date WBC 5.6 10/09/2013 WBCEX 6.5 11/11/2013 HGB 13.8 10/09/2013 HGBEX 14.5 11/11/2013 HCT 40.9 10/09/2013 HCTEX 43.8 11/11/2013 PLT 294 10/09/2013 PLTEX 244 11/11/2013 I reviewed records from Woody Christiansen DO for office visit on 01/29/2018. Refer to cardiol ogedin. ASSESSMENT: 1. Bradycardia/symptomatic A. Patient was in her usual state of health until December she was seen at [facility] for head pain. At that time she had a heart beat that went down to 30 beats per minute and was diagnosed with bradycardia. She denied any dizziness and lightheadedness. Today, patient reports feeling palpitations. She also reports getting more tired going up and down the stairs at her appartment. Patient is physically active gardening. There is no s igns and symptoms of overt congestive heart failure. She is in a class I of [place] [facility] functional class. There is no fluid retention on physical examination. 2. Palpitations A. She complained of occasional palpitation and heart racing. 3. Abnormal ECG suggesting anteroseptal wall myocardial infarction, age indeterminate A. She has no chest pain but complained of feeling fatigued. 4. Hypothyroidism A. She is on levothyroxine 88 mcg. PLAN: 1. I spend time at length talking about natural course, treatment and prognosis of bradycar merline and palpitations. 2. Check CBC, CMP and TSH. 3. Echocardiogram is warranted to assess cardiac structure 4. Schedule patient for 48 hour Holter monitor for bradycardia. 5. Schedule patient for exercise MPI stress test for abnormal ECG. 6. I recommend a therapeutic lifestyle change including walking 30 minutes a day and choosi ng healthy choices of diet. 7. Follow up in 6 to 8 weeks. Rocio Terrazas am acting as a scribe on behalf of, and in the presence of Rosa Barrientos MD. I have reviewed and edited this note. Rocio Terrazas, Offal Baler 04/05/2018 I, Rosa Barrientos MD, personally performed the services described in this documentation, as scribed in my presence and it is both accurate and complete. Rocio Terrazas, Med Ass t 04/05/2018 13:05 Electronically signed by: Rosa Barrientos MD [facility] 04/05/2018 Portions of this chart may have been created with Mandoyo voice recognition software. Occasi onal wrong-word or sound-alike substitutions may have occurred due to the inherent joshi itations of voice recognition software. Please read the chart carefully and recognize, using context, where these substitutions have occurred. in this encounter Plan of Treatment +--------+---------+ + + + | Date | Type | Specialty | Care Team | Description | +--------+---------+ + + + | 06/27/ | Office | Cardiology | Brendon, | | | 2017 | Visit | | [facility]RI[facility] [address] | | | | | | [place], | | | | | | [place] [address] | | | | | | [phone] | | | | | | | | +--------+---------+ + + + | 08/23/ | Office | Cardiology | Rosa Barrientos, | | | 2017 | Visit | | [address] | | | | | | [place], | | | | | | [place] [address] | | | | | | [phone] | | | | | | | [...] HDL | 28 - 83 mg/dL | [facility] | | | Reference Range as of | | [facility] | | | June 03, 2015 | | CENTER - | | | Values may be 10-20% | | LABORATORY | | | lower with new, | | | | | standardized method. | | | + + + + + | Chol/HDL Ratio | 3.3 | | [facility] | | | | | [facility] | | | | | CENTER - | | | | | LABORATORY | + + + + + | LDL, Calculated | 100 | <=130 mg/dL | [facility] | | | | | [facility] | | | | | CENTER - | | | | | LABORATORY | + + + + + + + | Specimen | + + | Blood | + + + + + + + | Performing | Address | City/State/Zipcode | Phone Number | | Organization | | | | + + + + + | [facility] | [address] | [place] | [phone] | | [facility] | | [address] | | | - LABORATORY | | | | + + + + + | [facility] | [address] | [place], [place] | | | [facility] | | [address] | | | - LABORATORY | | | | + + + + + TSH (04/19/2018919) + + + + + | Component | Value | Ref Range | Performed At | + + + + + | TSH | 0.09 (L)Comment: This is | 0.45 - 5.33 uIU/mL | [facility] | | | a third generation TSH | | [facility] | | | test. | | CENTER [...] + | [facility] | [address] | [place] | [phone] | | [facility] | | [address] | | | - LABORATORY | | | | + + + + + | [facility] | [address] | [place] | | | [facility] | | [address] | | | - LABORATORY | | | | + + + + + Comprehensive Metabolic Panel (04/19/2018919) + + + + + | Component | Value | Ref Range | Performed At | + + + + + | NA | 140 | 136 - 149 mmol/L | [facility] | | | | | [facility] | | | | | CENTER - [...] [facility] | | | | | [facility] | | | | | CENTER - | | | | | LABORATORY | + + + + + | Creatinine, | 0.88 | 0.60 - 1.30 mg/dL | [facility] | | Serum/Plasma | | | [facility] | | | | | CENTER - | | | | | LABORATORY | + + + + + | eGFR if not | >60Comment: GLOMERULAR | >=60 mL/min/1.73m2 | [facility] | | PANAMANIAN | FILTRATION | | [facility] | | | RATE,ESTIMATED mL/min | | CENTER - | | | /1.17g0Pgnr than 60 | | LABORATORY | | [...] [facility] | | | | | [facility] | | | | | [...] [facility] | | | | | [facility] | | | | | [...] + | [facility] | [address] | [place], [place] | [phone] | | [facility] | | [address] | | | - LABORATORY | | | | + + + + + | [facility] | [address] | [place], [place] | | | [facility] | | [address] | | | - LABORATORY | | [...] + | [facility] | [address] | [place], [place] | [phone] | | [facility] | | [address] | | | - LABORATORY | | | | + + + + + | [facility] | [address] | [place], [place] | | | [facility] | | [address] | | | - LABORATORY | | [...] ELISA | | | JAVIER Room Number [place] | | | Patient Number [id number] Date of | | | Study 04/12/2018 Visit Number [id number] | | | Referring | | | Physician ILIANA LEE Number Date of | | | 1945 | | | Manager Adult LINDSAY ESTRADA | | | Age 72 year(s) | | | Interpreting ROSA | | | ILIANA, | | | Cranberry Sorter | | | | | | ILIANA LEE | | | Gender Female Nurse | | | | | | Stress Package Line Relief Operator Procedure Type of Study TTE procedure: ECHO [...] | cm PW Diastolic: 0.82 cm EF Cxoipqsxy01% EF Calculated: 54% | | | Miscellaneous [...] Diastolic: 0.82 cm | | | EF Ggylgcydh24% | | | EF Calculated: 54% | [...] Demographics | | | | Patient Name [facility] Room Number | | [place] | | | | Patient Number [id number] Date of Study 04/12/2018 | | | | Visit Number [id number] | | | | Referring Physician ILIANA LEE | | Number | | | | Date of 1945 Manager Adult LINDSAY ESTRADA | | | | Age 72 year(s) Interpreting ROSA BARRIENTOS, | | Cranberry Sorter | | ILIANA LEE | | | | Gender Female Nurse | | | | Stress Package Line Relief Operator | | | | Procedure | | [...] PW Diastolic: 0.82 cm | | EF Pxihwbzac73% | | EF Calculated: 54% | | [...] Rosa Barrientos MD 04/12/2018 15:37 PATIENT | [facility] | | NAME: Javier Oreilly : 1945: AGE: 72 | | | y.o. PRIMARY CARE: Woody | | | DO KAREN Christiansen RELIABILITY TECHNOLOGIST: Rosa Barrientos MD | | | 48-HOUR [...] by: | | | Rosa Barrientos MD [facility] 04/12/2018, 15:28 | | + + + + +---------+ + + | Performing | Address | City/State/[place] | Phone Number | | Organization | [...] BARRIENTOS MD | | | | | ([phone]) on 04/05/2018 | | | | | [...]
--- OUTSIDE RECORDS SUMMARY | ~2018-06-26 | XMS | Encounter Summary ---
Demographics + + + | Address | [address] | | | [place] [address] | + + + | Home Phone | | + + + | Preferred Language | Unknown | + + + | Marital Status | | + + + | Baptism Affiliation | 1013 | + + + | Race | Unknown | + + + | Ethnic Group | Unknown | + + + Author + + + | Author | [facility] | | | and Fidelana | + + + | Organization | [facility] | | | and [place] [...] [place], [place] | | | | | [address] | | + + + + + | Kiara Villagran | ECON | [address] | | | | | [place], [place] | | | | | [address] | | + + + + + Care Team Providers + +------+ + | Care Mortar Carrier Name | Role | Phone | + [...] Bradycardia | MD Rosa | [address] | | | | | Abnormal | [address] | [place], | | | | | EKG | [address] | [place] | | | | | Procedures | [place], | [address] | | | | | ECHO | [place] [address] | Phone: | | | | | Complete [place] | Phone: | [phone] | | | | | ECHO HEART | [phone] | Fax: | | | | | [place] | Fax: | [phone] | | | | | [place] [address] | [phone] | | | | | | [place]OPPL[place] IN | | | | | | | [...] Procedures | [address] | [address] | | | | | IN OFFICE | [address] | [address] | | | | | CONSULTATION | [facility] [place] | [place], | | | | | [facility] | [address] | [place] [address] | | | | | PATIENT 40 | Phone: | Phone: | | | | | [facility] - | [phone] | [phone] | | | | | LAST SEEN | | Fax: | | | | | 2006 | | [phone] | +--------+--------+ + + + + Encounter Details +--------+---------+ + + + | Date | Type | Department | Care Team | Description | +--------+---------+ + + + | 04/05/ | Office | [facility] | Rosa Barrientos, | Bradycardia (Primary | | 2018 | Visit | CARDIOLOGY [address] | MD [address] | Dx); Abnormal EKG; | | | | [address] [place], | [place], | Hyperlipidemia, | | | | [place] [address] | [place] [address] | unspecified | | | | [phone] | [phone] | hyperlipidemia type | | | | [...] health until December she was seen at [facility] for head pain. 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 ECG: Marked sinus bradycardia, anterior wall NM age undetermined. LAB RESULTS: LIPID Lab Results [...] health until December she was seen at [facility] for head pain. At that time [...] She is in a class I of [place] [facility] ssociation functional class. There is [...] reviewed and edited this note. Rocio Terrazas, Courtesy Car Driver 04/05/2018 I, Rosa Barrientos MD, personally performed the services described in this documentation, as scribed in my presence and it is both accurate and complete. Rocio Terrazas, Med Ass t 04/05/2018 13:05 Electronically signed by: Rosa Barrientos MD [facility] 04/05/2018 Portions of this chart may have been created with [employer] voice recognition software. Occasi onal wrong-word or [...] [place], | | | | | | [place] [address] | | | | | | [phone] | | | | | | | | +--------+---------+ + + + | 08/23/ | Office | Cardiology | Rosa Barrientos, | | | 2017 | Visit | | [address] | | | | | | [place], | | | | | | [place] [address] | | | | | | [phone] | | | | | | | [...] HDL | 28 - 83 mg/dL | [facility] | | | Reference Range as of | | [facility] | | | June 03, 2015 | | CENTER - | | | Values may be 10-20% | | LABORATORY | | | lower with new, | | | | | standardized method. | | | + + + + + | Chol/HDL Ratio | 3.3 | | [facility] | | | | | [facility] | | | | | CENTER - | | | | | LABORATORY | + + + + + | LDL, Calculated | 100 | <=130 mg/dL | [facility] | | | | | [facility] | | | | | CENTER [...] + | [facility] | [address] | [place] | [phone] | | [facility] | | [address] | | | - LABORATORY | | | | + + + + + | [facility] | [address] | [place], [place] | | | [facility] | | [address] | | | - LABORATORY | | | | + + + + + TSH (04/19/2018919) + + + + + | Component | Value | Ref Range | Performed At | + + + + + | TSH | 0.09 (L)Comment: This is | 0.45 - 5.33 uIU/mL | [facility] | | | a third generation TSH | | [facility] | | | test. | | [...] + | [facility] | [address] | [place] | [phone] | | [facility] | | [address] | | | - LABORATORY | | | | + + + + + | [facility] | [address] | [place] | | | [facility] | | [address] | | | - LABORATORY | | | | + + + + + Comprehensive Metabolic Panel (04/19/2018919) + + + + + | Component | Value | Ref Range | Performed At | + + + + + | NA | 140 | 136 - 149 mmol/L | [facility] | | | | | [facility] | | | | | CENTER [...] [facility] | | | | | [facility] | | | | [...] >=60 mL/min/1.73m2 | [facility] | | [place] | FILTRATION | | [facility] | | | RATE,ESTIMATED mL/min | | CENTER - | | | /1.13t1Lbmx than 60 | | LABORATORY | | [...] [facility] | | | | | [facility] | | | | [...] [facility] | | | | | [facility] | | | | [...] + | [facility] | [address] | [place], [place] | [phone] | | [facility] | | [address] | | | - LABORATORY | | | | + + + + + | [facility] | [address] | [place], [place] | | | [facility] | | [address] | | | - LABORATORY | | [...] + | [facility] | [address] | [place], [place] | [phone] | | [facility] | | [address] | | | - LABORATORY | | | | + + + + + | [facility] | [address] | [place], [place] | | | [facility] | | [address] | | | - LABORATORY | | [...] Number MITCHELL | | | Patient Number [id number] Date of | | | Study 04/12/2018 Visit Number [id number] | | | Referring | | | Physician ILIANA LEE Number Date of | | | 1945 | | | Landing Signal Officer LINDSAY ESTRADA | | | Age 72 year(s) | | | Interpreting ROSA | | | ILIANA, | | | Bargeman | | | | | | ILIANA LEE | | | Gender Female Nurse | | | | | | Stress Case Planner Procedure Type of Study TTE procedure: ECHO [...] | cm PW Diastolic: 0.82 cm EF Potynikdn90% EF Calculated: 54% | | | Miscellaneous [...] Diastolic: 0.82 cm | | | EF Oeljvtaui75% | | | EF Calculated: 54% | [...] Demographics | | | | Patient Name [facility] Room Number | | MITCHELL | | | | Patient Number [id number] Date of Study 04/12/2018 | | | | Visit Number [id number] | | | | Referring Physician ILIANA LEE | | Number | | | | Date of 1945 Landing Signal Officer LINDSAY ESTRADA | | | | Age 72 year(s) Interpreting ROSA BARRIENTOS, | | Bargeman | | ILIANA LEE | | | | Gender Female Nurse | | | | Stress Case Planner | | | | Procedure | | [...] PW Diastolic: 0.82 cm | | EF Gjytexltr15% | | EF Calculated: 54% | | [...] PRIMARY CARE: Woody | | | DO KARNE Christiansen STAMPING BENCH DIE MAKER: Rosa Barrientos MD | | | 48-HOUR [...] by: | | | Rosa Barrientos MD [facility] 04/12/2018, 15:28 | | + + + + +---------+ + + | Performing | Address | City/[facility] | Phone Number | | Organization | [...] BARRIENTOS MD | | | | | ([id number]) on 04/05/2018 | | | | | [...]
--- OUTSIDE RECORDS SUMMARY | ~2018-06-26 | XMS | Encounter Summary ---
Demographics + + + | Address | [address] | | | [place] [address] | + + + | Home Phone | | + + + | Preferred Language | Unknown | + + + | Marital Status | | + + + | Shinto Affiliation | 1013 | + + + | Race | Unknown | + + + | Ethnic Group | Unknown | + + + Author + + + | Author | [facility] | | | and Fidelana | + + + | Organization | [facility] | | | and [...] [place], [place] | | | | | [address] | | + + + + + | Kiara Villagran | ECON | [address] | | | | | [place], [place] | | | | | [address] | | + + + + + Care Team Providers + +------+ + | Care Back Sewer Name | Role | Phone | + [...] | Radiology | Diagnoses | [place], | [facility] [facility] | | | | | Bradycardia | MD Reji | Medicine | | | | | Abnormal | [address] | [address] | | | | | EKG | [address] | [place], | | | | | Procedures | [place], | [place] | | | | | [place] Nuclear | [place] [address] | [address] | | | | | Stress Test | Phone: | Phone: | | | | | (Vasodilator | [phone] | [phone] | | | | | ) [place] | Fax: | Fax: | | | | | Nuclear | [phone] | [phone] | | | | | Stress Test | | | | | | | (Exercise) | | | +--------+--------+ + + + + Encounter Details +--------+ + + + + | Date | Type | Department | Care Team | Description | +--------+ + + + + | 04/19/ | Hospital | [facility] | Reji Barrientos, | Bradycardia; | | 2018 | Encounter | MED CTR NUCLEAR | MD [address] | Abnormal EKG; | | | | MEDICINE [address] | [address] [place], | Hyperlipidemia, | | | | [place], | [place] [address] | unspecified | | | | [place] [address] | [phone] | hyperlipidemia type | | | | [phone] | | | | | | | Cheese CookerLori | | +--------+ + + + + [...] | | | | | | [place] [address] | | | | | | [phone] | | | | | | | | +--------+---------+ + + + | 08/23/ | Office | Cardiology | Reji Barrientos, | | | 2017 | Visit | | [address] | | | | | | [place], | | | | | | [place] [address] | | | | | | [phone] | | | | | | | [...] [facility] | | | | | [facility] | | | | | CENTER - | | | | | LABORATORY | + + + + + | HDL | 52Comment: New HDL | 28 - 83 mg/dL | [facility] | | | Reference Range as of | | [facility] | | | June 03, 2015 [...] [facility] | | | | | [facility] | | | | | [...] ST. | [address] | [place], [place] | [phone] | | [facility] | | [address] | | | - LABORATORY | | | | + + + + + | [facility] | [address] | [place] | | | [facility] | | [address] | | | - LABORATORY | | | | + + + + + TSH (04/19/2018919) + + + + + | Component | Value | Ref Range | Performed At | + + + + + | TSH | 0.09 (L)Comment: This is | 0.45 - 5.33 uIU/mL | [facility] | | | a third generation TSH | | [facility] | | | test. | [...] + | [facility] | [address] | [place], [place] | [phone] | | [facility] | | [address] | | | - LABORATORY | | | | + + + + + | [facility] | [address] | [place], [place] | | | [facility] | | [address] | | | - LABORATORY | | [...] 0.88 | 0.60 - 1.30 mg/dL | [facility] | | Serum/Plasma | | | [facility] | | | | | CENTER - | | | | | LABORATORY | + + + + + | eGFR if not | >60Comment: GLOMERULAR | >=60 mL/min/1.73m2 | [facility] | | [place] | FILTRATION | | [facility] | | | RATE,ESTIMATED mL/min | | CENTER - | | | /1.18a0Opbh than 60 | | LABORATORY | | [...] [facility] | | | | | [facility] | | | | | CENTER [...] + | [facility] | [address] | [place] | [phone] | | [facility] | | [address] | | | - LABORATORY | | | | + + + + + | [facility] | [address] | [place] | | | [facility] | | [address] | | | - LABORATORY | | | | + + + + + CBC with Differential (04/19/2018919) + +---------+ + + | Component | Value | Ref Range | Performed At | + +---------+ + + | WBC | 6.5 | 4.0 - 11.0 K/uL | [facility] | | | | | [facility] | | | | | [...] [facility] | | | | | [facility] | | | | | [...] [address] | [place] | [phone] | | [facility] | | [address] | | | - LABORATORY | | | | + + + + + | [facility] | [address] | [place] | | | [facility] | | [address] | | | - LABORATORY | | [...]
--- OUTSIDE RECORDS SUMMARY | ~2018-06-26 | XMS | Encounter Summary ---
Demographics + + + | Address | [address] | | | [place] [address] | + + + | Home Phone | | + + + | Preferred Language | Unknown | + + + | Marital Status | | + + + | Buddhist Affiliation | 1013 | + + + | Race | Unknown | + + + | Ethnic Group | Unknown | + + + Author + + + | Author | [facility] | | | and Fidelana | + + + | Organization | [facility] | | [...] [place], [place] | | | | | [address] | | + + + + + | Kiara Villagran | ECON | [address] | | | | | [place], [place] | | | | | [address] | | + + + + + Care Team Providers + +------+ + | Care Environmental Field Office Manager Name | Role | Phone | + [...] Abnormal | [address] | [address] | | | | | EKG | [address] | [place], | | | | | Procedures | [place], | [place] | | | | | [place] Nuclear | [place] [address] | [address] | | | | | Stress Test | Phone: | Phone: | | | | | (Vasodilator | [phone] | [phone] | | | | | ) [place] | Fax: | Fax: | | | | | Nuclear | [phone] | [phone] | | | | | Stress Test | | | | | | | (Exercise) | | | +--------+--------+ + + + + Encounter Details +--------+ + + + + | Date | Type | Department | Care Team | Description | +--------+ + + + + | 04/19/ | Hospital | [facility] | Reji Barrientos, | Bradycardia; | | 2018 | Encounter | MED CTR NUCLEAR | MD [address] | Abnormal EKG | | | | MEDICINE [address] | [address] [place], | | | | | [place], | [place] [address] | | | | | [place] [address] | [phone] | | | | | [phone] | | | +--------+ + + + [...] [place], | | | | | | [place] [address] | | | | | | [phone] | | | | | | | | +--------+---------+ + + + | 08/23/ | Office | Cardiology | Reji Barrientos, | | | 2017 | Visit | | [address] | | | | | | [place], | | | | | | [place] [address] | | | | | | [phone] | | | | | | | [...] by: Reji | | | MD Iliana [facility] 04/19/2018, 10:48 | | + + + [...]
--- OUTSIDE RECORDS SUMMARY | ~2018-06-26 | XMS | Encounter Summary ---
Demographics + + + | Address | [address] | | | [place] [address] | + + + | Home Phone | | + + + | Preferred Language | Unknown | + + + | Marital Status | | + + + | Restoration Affiliation | 1013 | + + + | Race | Unknown | + + + | Ethnic Group | Unknown | + + + Author + + + | Author | [facility] | | | and Fidelana | + + + | Organization | [facility] | | | and [place] [...] [place], [place] | | | | | [address] | | + + + + + | Kiara Vlilagran | ECON | [address] | | | | | [place], [place] | | | | | [address] | | + + + + + Care Team Providers + +------+ + | Care Polymerization Kettle Operator Name | Role | Phone | + +------+ + | Woody Christiansen DO | PCP | | + +------+ + Reason for Visit +--------+ + | Reason | Comments | +--------+ + | Other | stress test | +--------+ + Encounter Details +--------+ + + + + | Date | Type | Department | Care Team | Description | +--------+ + + + + | 04/24/ | Telephone | [facility] | Reji Barrientos, | Other (stress test) | | 2017 | | CARDIOLOGY [address] | [address] [place] | | | | | [place], | [place], | | | | | [place] [address] | [place] [address] | | | | | [phone] | [phone] | | | | | | | [...] | | | | | | [place] [address] | | | | | | [phone] | | | | | | | | +--------+---------+ + + + | 08/23/ | Office | Cardiology | Reji Barrientos, | | | 2017 | Visit | | MD [address] | | | | | | [place], | | | | | | [place] [address] | | | | | | [phone] | | | | | | | | +--------+---------+ + + + as of this encounter Visit Diagnoses Not on filein this encounter"
--- OUTSIDE RECORDS SUMMARY | ~2018-06-26 | XMS | Encounter Summary ---
Demographics + + + | Address | [address] | | | [place] [address] | + + + | Home Phone | | + + + | Preferred Language | Unknown | + + + | Marital Status | | + + + | Zoroastrian Affiliation | 1013 | + + + | Race | Unknown | + + + | Ethnic Group | Unknown | + + + Author + + + | Author | [facility] | | | and Fidelana | + + + | Organization | [facility] | | | and [...] [place], [place] | | | | | [address] | | + + + + + | Kiara Villagran | ECON | [address] | | | | | [place], [place] | | | | | [address] | | + + + + + Care Team Providers + +------+ + | Care Paper Bag Press Operator Name | Role | Phone | [...] Bradycardia | MD Rosa | [address] | | | | | Abnormal | [address] | [place], | | | | | EKG | [address] | [place] | | | | | Procedures | [place], | [address] | | | | | ECHO | [place] [address] | Phone: | | | | | Complete [place] | Phone: | [phone] | | | | | ECHO HEART | [phone] | Fax: | | | | | [place] | Fax: | [phone] | | | | | [address] | [phone] | | | | | | [place] | | | | | | | ECHO HEART | | | | | | | [place] | | | | | | | MPLETE, W/O | | | | | | | DOPPLER | | | +--------+--------+ + + + + Diagnostic/Screening (Routine) +--------+--------+ + + + + | Status | Reason | Specialty | Diagnoses / | Referred By | Referred To | | | | | Procedures | Contact | Contact | +--------+--------+ + + + + | Closed | | Radiology | Diagnoses | Pauliewasilvio, | [facility] | | | | | Bradycardia | MD Rosa | [address] | | | | | Abnormal | [address] | [place], | | | | | EKG | [address] | [place] | | | | | Procedures | [place], | [address] | | | | | ECHO | [place] [address] | Phone: | | | | | Complete [place] | Phone: | [phone] | | | | | ECHO HEART | [phone] | Fax: | | | | | [place] | Fax: | [phone] | | | | | [address] | [phone] | | | | | | [place] | | | | | | | ECHO HEART | | | | | | | [place] | | | | | | | MPLETE, [place]/O | | | | | | | DOPPLER | | | +--------+--------+ + + + + Reason for Visit Auth/Cert +--------+--------+ + + + + | Status | Reason | Specialty | Diagnoses / | Referred By | Referred To | | | | | Procedures | Contact | Contact | +--------+--------+ + + + + | | | | | | | +--------+--------+ + + + + Encounter Details +--------+ + + + + | Date | Type | Department | Care Team | Description | +--------+ + + + + | 04/12/ | Hospital | [facility] | Rosa Barrientos, | Bradycardia; | | 2018 | Encounter | MED CTR ECHO [address] | [address] | Abnormal EKG | | | | [place] | [address] [place], | | | | | [place] [address] | [place] [address] | | | | | [phone] | [phone] | | | | | | | | | | | | Cee Pizarro, | | | | | | Soup Person | | +--------+ + + + + [...] [place], | | | | | | [place] [address] | | | | | | [phone] | | | | | | | | +--------+---------+ + + + | 08/23/ | Office | Cardiology | Rosa Barrientos, | | | 2017 | Visit | | [address] | | | | | | [place], | | | | | | [place] [address] | | | | | | [phone] | | | | | | | [...] + + + in this encounter Results ECHO Complete (04/12/2018 1554) + +-------+ + [...] Number MITCHELL | | | Patient Number [id number] Date of | | | Study 04/12/2018 Visit Number [id number] | | | Referring | | | Physician ILIANA LEE Number Date of | | | 1945 | | | End User Consultant LINDSAY CEE | | | Age 72 year(s) | | | Interpreting ROSA | | | ILIANA, | | | Mini Baccarat Dealer | | | | | | ILIANA LEE | | | Gender Female Nurse | | | | | | Stress Manager Private Procedure Type of Study TTE procedure: ECHO [...] | cm PW Diastolic: 0.82 cm EF Rbgahdsgw65% EF Calculated: 54% | | | Miscellaneous [...] Diastolic: 0.82 cm | | | EF Tsrtlasxf40% | | | EF Calculated: 54% | [...] Name ELISA HERRERA Room Number | | MITCHELL | | | | Patient Number [id number] Date of Study 04/12/2018 | | | | Visit Number [id number] | | | | Referring Physician ILIANA LEE | | Number | | | | Date of 1945 End User Consultant LINDSAY ESTRADA | | | | Age 72 year(s) Interpreting ROSA BARRIENTOS, | | Mini Baccarat Dealer | | ILIANA LEE | | | | Gender Female Nurse | | | | Stress Manager Private | | | | Procedure | | [...] PW Diastolic: 0.82 cm | | EF Eyejtftjm19% | | EF Calculated: 54% | | [...]
--- OUTSIDE RECORDS SUMMARY | ~2018-06-26 | XMS | Encounter Summary ---
Demographics + + + | Address | [address] | | | [place] [address] | + + + | Home Phone | | + + + | Preferred Language | Unknown | + + + | Marital Status | | + + + | Church Affiliation | 1013 | + + + | Race | Unknown | + + + | Ethnic Group | Unknown | + + + Author + + + | Author | [facility] | | | and Fidelana | + + + | Organization | [facility] | | | and [place] [...] [place], [place] | | | | | [address] | | + + + + + | Kiara Villagran | ECON | [address] | | | | | [place], [place] | | | | | [address] | | + + + + + Care Team Providers + +------+ + | Care Tug Hand Name | Role | Phone | + +------+ + | Woody Christiansen DO | PCP | | + +------+ + Encounter Details +--------+ + + + + | Date | Type | Department | Care Team | Description | +--------+ + + + + | 04/10/ | Hospital | [facility] | Amilcaralexsilvio Keziaamilcar, | Bradycardia; | | 2018 | Encounter | MED CTR NUCLEAR | MD [address] | Abnormal EKG | | | | MEDICINE [address] | [address] [place], | | | | | [place] | [place] [address] | | | | | [place] [address] | [phone] | | | | | [phone] | | | +--------+ + + + [...] | | | | | | [place] [address] | | | | | | [phone] | | | | | | | | +--------+---------+ + + + | 08/23/ | Office | Cardiology | Amilcarkeziaespinoza Keziaamilcar, | | | 2017 | Visit | | [address] | | | | | | [place], | | | | | | [place] [address] | | | | | | [phone] | | | | | | | [...] Woody | | | DO KAREN Christiansen INDUSTRIAL CHEMIST: Reji Barrientos MD | | | 48-HOUR [...] by: | | | Reji Barrientos MD [facility] 04/12/2018, 15:28 | | + + [...]
--- OUTSIDE RECORDS SUMMARY | ~2018-06-26 | XMS | Encounter Summary ---
Demographics + + + | Address | [address] | | | [place] [address] | + + + | Home Phone | | + + + | Preferred Language | Unknown | + + + | Marital Status | | + + + | Yazidism Affiliation | 1013 | + + + | Race | Unknown | + + + | Ethnic Group | Unknown | + + + Author + + + | Author | [facility] | | | and Fidelana | + + + | Organization | [facility] | | | and [place] [...] [place], [place] | | | | | [address] | | + + + + + | Kiara Villagran | ECON | [address] | | | | | [place], [place] | | | | | [address] | | + + + + + Care Team Providers + +------+ + | Care Accountant Cost Name | Role | Phone | + [...] + + | 04/24/ | Telephone | [facility] | Reji Barrientos, | Other (stress test) | | 2017 | | CARDIOLOGY [address] | [address] [place] | | | | | [place], | [place], | | | | | [place] [address] | [place] [address] | | | | | [phone] | [phone] | | | | | | | [...] | | | | | | [place] [address] | | | | | | [phone] | | | | | | | | +--------+---------+ + + + | 08/23/ | Office | Cardiology | Reji Barrientos, | | | 2017 | Visit | | MD [address] | | | | | | [place], | | | | | | [place] [address] | | | | | | [phone] | | | | | | | | +--------+---------+ + + + as of this encounter Visit Diagnoses Not on filein this encounter"
--- OUTSIDE RECORDS SUMMARY | ~2018-06-26 | XMS | Clinical Summary ---
Demographics + + + | Address | [address] | | | [place] [address] | + + + | Home Phone | | + + + | Preferred Language | Unknown | + + + | Marital Status | | + + + | Druze Affiliation | 1013 | + + + | Race | Unknown | + + + | Ethnic Group | Unknown | + + + Author + + + | Author | [facility] | | | and [place] | + + + | Organization | [facility] | | | and [place] [...] [place], [place] | | | | | [address] | | + + + + + | Kiara Villagran | ECON | [address] | | | | | [place], [place] | | | | | [address] | | + + + + + Care Team Providers + +------+ + | Care Platform Operations Director Name | Role | Phone | + [...] bleeding. Haustrations increased. Repeat in | | [id number]. Dexa: | | | |Dexa: | + [...] | | 2017 | Encounter | | Import Coordination And Production Head, | Abnormal EKG; | | | | [...] | | | | | | [place] [address] | | | | | | [phone] | | | | | | | | +--------+---------+ + + + | 08/23/ | Office | | Rosa Barrientos, | | | 2017 | Visit | | MD Kevon Thomas | | | | | | [place], | | | | | | [place] [address] | | | | | | [phone] | | | | | | | [...] by: Rosa | | | MD Iliana [facility] 04/19/2018, 10:48 | | + [...] | Reference Range as of | | [facility] | | | June 03, 2015 | | CENTER - | | | Values may be 10-20% | | LABORATORY | | | lower with new, | | | | | standardized method. | | | + + + + + | Chol/HDL Ratio | 3.3 | | [facility] | | | | | [facility] | | | | | CENTER - | | | | | LABORATORY | + + + + + | LDL, Calculated | 100 | <=130 mg/dL | [facility] | | | | | [facility] | | | | | [...] + | [facility] | [address] | [place] | [phone] | | [facility] | | [address] | | | - LABORATORY | | | | + + + + + | [facility] | [address] | [place] | | | [facility] | | [address] | | | - LABORATORY | | [...] + | [facility] | [address] | [place], [place] | [phone] | | [facility] | | [address] | | | - LABORATORY | | | | + + + + + | [facility] | [address] | [place], [place] | | | [facility] | | [address] | | | - LABORATORY | | | | + + + + + TSH (04/19/2018919) + + + + + | Component | Value | Ref Range | Performed At | + + + + + | TSH | 0.09 (L)Comment: This is | 0.45 - 5.33 uIU/mL | [facility] | | | a third generation TSH | | [facility] | | | test. | [...] + | [facility] | [address] | [place] | [phone] | | [facility] | | [address] | | | - LABORATORY | | | | + + + + + | [facility] | [address] | [place] | | | [facility] | | [address] | | | - LABORATORY | | | | + + + + + Comprehensive Metabolic Panel (04/19/2018919) + + + + + | Component | Value | Ref Range | Performed At | + + + + + | NA | 140 | 136 - 149 mmol/L | [facility] | | | | | [facility] | | | | | [...] 106 | 70 - 109 mg/dL | [facility] | | | | | [facility] | | | | | CENTER - | | | | | LABORATORY | + + + + + | BUN | 17 | 7 - 18 mg/dL | [facility] | | | | | [facility] | | | | | CENTER - | | | | | LABORATORY | + + + + + | Creatinine, | 0.88 | 0.60 - 1.30 mg/dL | [facility] | | Serum/Plasma | | | [facility] | | | | | CENTER - | | | | | LABORATORY | + + + + + | eGFR if not | >60Comment: GLOMERULAR | >=60 mL/min/1.73m2 | [facility] | | AZERBAIJANI | FILTRATION | | [facility] | | | RATE,ESTIMATED mL/min | | CENTER - | | | /1.31c0Pune than 60 | | LABORATORY | | [...] [facility] | | | | | [facility] | | | | | CENTER [...] + | [facility] | [address] | [place] | [phone] | | [facility] | | [address] | | | - LABORATORY | | | | + + + + + | [facility] | [address] | [place], [place] | | | [facility] | | [address] | | | - LABORATORY | | [...] Number PONCE | | | Patient Number [id number] Date of | | | Study 04/12/2018 Visit Number [id number] | | | Referring | | | Physician ILIANA LEE Number Date of | | | 1945 | | | Survival Specialist LINDSAY ESTRADA | | | Age 72 year(s) | | | Interpreting ROSA | | | ILIANA, | | | Import Coordination And Production Head | | | MD | | | ILIANA LEE | | | Gender Female Nurse | | | | | | Stress Senior Media Buyer Procedure Type of Study TTE procedure: ECHO [...] | cm PW Diastolic: 0.82 cm EF Jvzlhqybz36% EF Calculated: 54% | | | Miscellaneous [...] Diastolic: 0.82 cm | | | EF Xnmdhetpc57% | | | EF Calculated: 54% | [...] PAULA | | | | Patient Number [id number] Date of Study 04/12/2018 | | | | Visit Number [id number] | | | | Referring Physician ILIANA LEE | | Number | | | | Date of 1945 Survival Specialist LINDSAY ESTRADA | | | | Age 72 year(s) Interpreting ROSA BARRIENTOS, | | Import Coordination And Production Head | | ILIANA LEE | | | | Gender Female Nurse | | | | Stress Senior Media Buyer | | | | Procedure | | [...] PW Diastolic: 0.82 cm | | EF Bjeqekvdo01% | | EF Calculated: 54% | | [...] Woody | | | DO KAREN Christiansen TRAIN OPERATIONS MANAGER: Rosa Barrientos MD | | | 48-HOUR [...] by: | | | Rosa Barrientos MD [facility] 04/12/2018, 15:28 | | + + + [...] BARRIENTOS MD | | | | | ([id number]) on 04/05/2018 | | | | | [...] +--------+ +---------+ | MEDICARE | MEDICA | [id number] | Medica | +- | | | | RE | | re | [phone] | | | | PART A | | | | | | | AND B | | | | | + +--------+ +--------+ +---------+ | [employer] [place] | UNITED | [id number] | Indemn | [phone] | | | OF | | ity | 1000 | | | | [place] | | | | | | | [...] | 1946 | [phone] | [place] [address] | | | kayla | | | 4939 | | + +--------+ +--------+ + +
--- OUTSIDE RECORDS SUMMARY | ~2018-06-26 | XMS | Encounter Summary ---
Demographics + + + | Address | [address] | | | [place] [address] | + + + | Home Phone | | + + + | Preferred Language | Unknown | + + + | Marital Status | | + + + | Latter-Day Affiliation | 1013 | + + + | Race | Unknown | + + + | Ethnic Group | Unknown | + + + Author + + + | Author | [facility] | | | and [place]idel[place] | + + + | Organization | [facility] | | | and [place] [...] [place], [place] | | | | | [address] | | + + + + + | Kiara Villagran | ECON | [address] | | | | | [place], [place] | | | | | [address] | | + + + + + Care Team Providers + +------+ + | Care Software Development Manager Name | Role | Phone | [...] + | 04/04/ | Telephone | [facility] | Reji Barrientos, | Referral | | 2018 | | CARDIOLOGY [address] | MD [address] | | | | | [place], | [place], | | | | | [place] [address] | [place] [address] | | | | | [phone] | [phone] | | | | | | | [...] [place], | | | | | | [place] [address] | | | | | | [phone] | | | | | | | | +--------+---------+ + + + | 08/23/ | Office | Cardiology | Reji Barrientos, | | | 2017 | Visit | | MD [address] | | | | | | [place], | | | | | | [place] [address] | | | | | | [phone] | | | | | | | | +--------+---------+ + + + as of this encounter Visit Diagnoses Not on filein this encounter"
--- OUTSIDE RECORDS SUMMARY | ~2018-06-26 | XMS | Clinical Summary ---
Demographics + + + | Address | [address] | | | [place] [address] | + + + | Home Phone | | + + + | Preferred Language | Unknown | + + + | Marital Status | | + + + | Scientologist Affiliation | Unknown | + + + | Race | Unknown | + + + | Ethnic Group | Unknown | + + + Author + + + | Author | [facility] | + + + | Organization | [facility] | + + + | Address | Unknown | + + + | Phone | Unavailable | + + + Support + + +---------+ + | Name | Relationship | Address | Phone | + + +---------+ + | Irwin Pastrana | [place] | Unknown | | + + +---------+ + Care Team Providers + +------+ + | Care Bulk Materials Handling Plant Operator Name | Role | Phone | [...] | | | | | | [place] [address] | | | | | | [phone] | | | | | | | | +--------+---------+ + + + | 09/27/ | Office | | Greg White MD [address] | | | 2018 | Visit | | [place], | | | | | | [place] [address] | | | | | | [phone] | | | | | | | [...] +------+-------+ + | MEDICARE | MEDICA | [id number] | | | [address] | | | RE | | | | [place] [phone] | | | IP-OP | | | | | + +--------+ +------+-------+ + | [employer] [place] | MUTUAL | [id number] | | | | | | OF | | | | | | | [place] | | | | | + +--------+ [...] | 1946 | [phone] | [place] [address] | | | [place] | | | [address] | | + +--------+ +--------+ + +"
--- OUTSIDE RECORDS SUMMARY | ~2018-06-26 | XMS | Encounter Summary ---
Demographics + + + | Address | [address] | | | [place] [address] | + + + | Home Phone | | + + + | Preferred Language | Unknown | + + + | Marital Status | | + + + | Muslim Affiliation | 1013 | + + + | Race | Unknown | + + + | Ethnic Group | Unknown | + + + Author + + + | Author | [facility] | | | and [place] | + + + | Organization | [facility] | | | and [...] [place], [place] | | | | | [address] | | + + + + + | Kiara Villagran | ECON | [address] | | | | | [place], [place] | | | | | [address] | | + + + + + Care Team Providers + +------+ + | Care Dish Cloth Inspector Name | Role | Phone | + [...] Bradycardia | MD Rosa | [address] | | | | | Abnormal | [address] | [place], | | | | | EKG | [address] | [place] | | | | | Procedures | [place], | [address] | | | | | ECHO | [place] [address] | Phone: | | | | | Complete ID | Phone: | [phone] | | | | | ECHO HEART | [phone] | Fax: | | | | | [place] | Fax: | [phone] | | | | | [address] | [phone] | | | | | | DOPPLER ID | | | | | | | [...] Bradycardia | MD Rosa | [address] | | | | | Abnormal | [address] | [place], | | | | | EKG | [address] | [place] | | | | | Procedures | [place], | [address] | | | | | ECHO | [place] [address] | Phone: | | | | | Complete ID | Phone: | [phone] | | | | | ECHO HEART | [phone] | Fax: | | | | | [place] | Fax: | [phone] | | | | | [address] | [phone] | | | | | | DOPPLER ID | | | | | | | [...] + + | 04/12/ | Hospital | [facility] | Rosa Barrientos, | Bradycardia; | | 2018 | Encounter | [facility] [address] | [address] | Abnormal EKG | | | | [address] [place] | [address] [place], | | | | | [place] [address] | [place] [id number] | | | | | [phone] | [phone] | | | | | | | | | | | | Cee Pizarro, | | | | | | Assistant Refinery Operator | | +--------+ + + + + [...] [place], | | | | | | [place] [id number] | | | | | | [phone] | | | | | | | | +--------+---------+ + + + | 08/23/ | Office | Cardiology | Rosa Barrientos, | | | 2017 | Visit | | [address] | | | | | | [place], | | | | | | [place] [address] | | | | | | [phone] | | | | | | | [...] Number MITCHELL | | | Patient Number [id number] Date of | | | Study 04/12/2018 Visit Number [id number] | | | Referring | | | Physician ILIANA LEE Number Date of | | | 1945 | | | Media Monitor LINDSAY CEE | | | Age 72 year(s) | | | Interpreting ROSA | | | ILIANA, | | | Jail Keeper | | | | | | ILIANA ELE | | | Gender Female Nurse | | | | | | Stress Brick Handler Procedure Type of Study TTE procedure: ECHO [...] | cm PW Diastolic: 0.82 cm EF Koothtcwi50% EF Calculated: 54% | | | Miscellaneous [...] Diastolic: 0.82 cm | | | EF Oxrpniquz44% | | | EF Calculated: 54% | [...] MITCHELL | | | | Patient Number [id number] Date of Study 04/12/2018 | | | | Visit Number [id number] | | | | Referring Physician ILIANA LEE | | Number | | | | Date of 1945 Media Monitor LINDSAY ESTRADA | | | | Age 72 year(s) Interpreting ROSA BARRIENTOS, | | Jail Keeper | | ILIANA LEE | | | | Gender Female Nurse | | | | Stress Brick Handler | | | | Procedure | | [...] PW Diastolic: 0.82 cm | | EF Klgcigxpm32% | | EF Calculated: 54% | | [...]
[~2018-06-26 04:19] MED LIST changes: +NORCO 5-325 TA1 EACH PO; +ONDANSETRON ODT8 MG PO
[2018-06-26] MEDS ORDERED: AMITRIPTYLINE H10 MG PO (04:30)
--- NOTE | 2018-06-26 14:49 | EKG ---
[facility] [address] [place] [address] Signed Sinus bradycardia with marked sinus arrhythmia with premature ventricular complexes or fusion complexes Low voltage QRS Left anterior fascicular block Septal infarct (cited on or before 12-JAN-2018) Possible Lateral infarct (cited on or before 12-JAN-2018) Abnormal ECG When compared with ECG of 12-JAN-2018 01:55, fusion complexes are now present premature ventricular complexes are now present Confirmed by LOLA SHERIFF DO ([id number]) on 06/26/2018 2:49:29 PM Electronically Signed By: LOLA SHERIFF DO 06/26/18 1449 PATIENT NAME: JAVIER PÉREZ Electrocardiogram DATE OF : 47 PHYSICIAN: LOLA SHERIFF DO REPORT #: [id number] REPORT IS CONFIDENTIAL AND NOT TO BE RELEASED WITHOUT AUTHORIZATION
== END 2018-06-26 07:02 | disposition home or self-care (01) ==
LOC: ED 04:19
DX: R00.1 Bradycardia, unspecified (principal); Z88.5 Allergy status to narcotic agent; Z88.8 Allergy status to other drugs, medicaments and biological substances; Z79.899 Other long term (current) drug therapy
CPT/HCPCS: 71045; 80053; 84484; 85025; 93005; 93010; 96374; 99285; J0461

== ENCOUNTER 2019-05-02 03:44 | Emergency (ER) | payer MEDICARE, OTHER ==
[~2019-05-02] VITALS: Ht 160 cm; Wt 55.0 kg
[~2019-05-02 03:44] MED LIST changes: +AMITRIPTYLINE H10 MG PO; +ASPIRIN325 MG PO; +ATORVASTATIN CA20 MG PO; +LEVOTHYROXINE50 MCG PO; +PLAVIX75 MG PO
[2019-05-02] MEDS ORDERED: DONEPEZIL HCL5 MG PO (04:00)
[2019-05-02] MEDS ORDERED: NORCO 5-325 TA1 EACH PO (04:47)
[2019-05-02] MEDS ORDERED: CEPHALEXIN500 MG PO (04:47)
[2019-05-02] MEDS ORDERED: CYCLOBENZAPRINE10 MG PO (04:47)
== END 2019-05-02 05:01 | disposition home or self-care (01) ==
LOC: ED 03:44
DX: N39.0 Urinary tract infection, site not specified (principal); E03.9 Hypothyroidism, unspecified; Z90.710 Acquired absence of both cervix and uterus; Z90.49 Acquired absence of other specified parts of digestive tract; Z88.5 Allergy status to narcotic agent; Z88.6 Allergy status to analgesic agent; Z79.82 Long term (current) use of aspirin; Z79.899 Other long term (current) drug therapy
CPT/HCPCS: 81001; 87077; 87088; 87186; 96372; 99284; J1885

== ENCOUNTER 2019-11-24 07:09 | Emergency (ER) | payer MEDICARE, OTHER ==
[~2019-11-24] VITALS: Ht 160 cm; Wt 55.0 kg
[~2019-11-24 07:09] MED LIST changes: +CEPHALEXIN500 MG PO; +CYCLOBENZAPRINE10 MG PO; +DONEPEZIL HCL5 MG PO
[2019-11-24] MEDS ORDERED: ZOFRAN4 MG PO (09:03)
--- NOTE | 2019-11-24 20:29 | EKG ---
[facility] [address] [facility] [place] [address] Signed AV dual-paced rhythm with prolonged AV conduction with occasional premature ventricular complexes Abnormal ECG When compared with ECG of 09-AUG-2018 04:53, premature ventricular complexes are now present Vent. rate has increased BY 8 BPM Confirmed by LOLA SHERIFF DO ([id number]) on 11/24/2019 8:29:51 PM Electronically Signed By: LOLA SHERIFF DO 11/24/192028 PATIENT NAME: JAVIER PÉREZ Electrocardiogram DATE OF : [birth year] PHYSICIAN: LOLA SHERIFF DO REPORT #: [id number] REPORT IS CONFIDENTIAL AND NOT TO BE RELEASED WITHOUT AUTHORIZATION
== END 2019-11-24 09:26 | disposition home or self-care (01) ==
LOC: ED 07:09
DX: R11.0 Nausea (principal); R53.1 Weakness; E03.9 Hypothyroidism, unspecified; Z88.5 Allergy status to narcotic agent; Z88.8 Allergy status to other drugs, medicaments and biological substances; Z79.899 Other long term (current) drug therapy
CPT/HCPCS: 71045; 80053; 81001; 83690; 84484; 85025; 93005; 93010; 96374; 99285-25; J2405; J7121